=== PATIENT | male | born 1990 | race Caucasian/White ===

== ENCOUNTER 2018-05-22 12:39 | Outpatient (REF) | payer OTHER, SELFPAY ==
[2018-05-22 12:58] LABS: HCT 45.5 % (40.0-50.0); HGB 15.6 g/dL (13.5-17.5); Mean Corp. HGB Concentration 34.3 g/dL (32.0-36.0); Mean Corpuscular Hemoglobin 31.1 pg (27.0-33.0); Mean Corpuscular Volume 90.6 fL (80-95); Mean Platelet Volume 10.4 fL (8.0-11.0); Platelet Count 238 x1000/uL (130-400); RBC 5.02 m/cumm (4.50-6.00); White Blood Cell Count 11.65 k/cumm (4.4-10.8)
[2018-05-22 13:00] LABS: BUN 14 mg/dL (7-18); CREATININE 1.19 mg/dL (0.70-1.30); Calcium 9.1 mg/dL (8.5-10.1); Chloride 101 mmol/L (98-107); Glucose 99 mg/dL (70-100); Sodium 139 mmol/L (136-145)
[2018-05-22 13:36] LABS: TSH (W/Ref FT4) 0.76 uIU/mL (0.358-3.74)
== END 2018-05-22 12:59 ==
LOC: LBN 12:39
PROVIDERS: Visit Provider Nurse Practitioner Family
DX: Z00.00 Encounter for general adult medical examination without abnormal findings (principal); Z13.29 Encounter for screening for other suspected endocrine disorder; Z13.228 Encounter for screening for other metabolic disorders; Z13.0 Encounter for screening for diseases of the blood and blood-forming organs and certain disorders involving the immune mechanism
CPT/HCPCS: 80048; 85027; 84443

== ENCOUNTER 2018-10-15 18:36 | Outpatient (REF) | payer OTHER, SELFPAY ==
[2018-10-15 18:52] LABS: Abs Immature Grans 0.03 k/cumm (0.0-0.09); Absolute Basophil Count 0.07 k/cumm (0.0-0.2); Absolute Eosinophil Count 0.22 k/cumm (0.0-0.7); Absolute Lymphocyte Count 2.16 k/cumm (1.2-3.4); Absolute Neutrophil Count 4.47 k/cumm (1.2-6.7); Basophils % 0.9; Eosinophils % 2.9; HCT 43.7 % (40.0-50.0); HGB 15.2 g/dL (13.5-17.5); Immature Grans % 0.4; Lymphocytes % 28.2; Mean Corp. HGB Concentration 34.8 g/dL (32.0-36.0); Mean Corpuscular Hemoglobin 30.7 pg (27.0-33.0); Mean Corpuscular Volume 88.3 fL (80-95); Mean Platelet Volume 9.6 fL (8.0-11.0); Monocytes % 9.2; Neutrophils % 58.4; Platelet Count 236 x1000/uL (130-400); RBC 4.95 m/cumm (4.50-6.00); RBC Distribution Width 12.2 % (11.8-14.1); White Blood Cell Count 7.65 k/cumm (4.4-10.8)
[2018-10-15 19:16] LABS: ALT 32 U/L (12-78); AST 16 U/L (15-37)
== END 2018-10-15 18:56 ==
LOC: NCHCN 18:36
PROVIDERS: Visit Provider Nurse Practitioner Psychiatric/Mental Health
DX: Z51.81 Encounter for therapeutic drug level monitoring (principal)
CPT/HCPCS: 84450; 84460; 85025

== ENCOUNTER 2020-01-22 08:43 | Outpatient (CLI) | payer OTHER, SELFPAY ==
--- NOTE | 2020-01-22 11:37 | DI.RAD_ITS ---
EXAM: XR FOOT LT COMPLETE CLINICAL HISTORY: LT FOOT PAIN, M79.672 TECHNIQUE: COMPARISON: No exams were available for comparison FINDINGS: Three views were obtained. Bony alignment appears within normal limits. No bony or soft tissue abno rmality seen. IMPRESSION: RADIATION DOSE DELIVERED: Total DLP
== END 2020-01-22 09:03 ==
PROVIDERS: Visit Provider Nurse Practitioner Family
DX: M79.672 Pain in left foot (principal)
CPT/HCPCS: 73630

== ENCOUNTER 2020-01-22 11:52 | Outpatient (REF) | payer OTHER, SELFPAY ==
[2020-01-22 18:36] LABS: Abs Immature Grans 0.04 10^3/uL (0.0-0.06); Absolute Basophil Count 0.07 10^3/uL (0.0-0.2); Absolute Eosinophil Count 0.26 10^3/uL (0.0-0.7); Absolute Lymphocyte Count 2.65 10^3/uL (1.2-3.4); Absolute Neutrophil Count 5.02 10^3/uL (1.2-6.7); Basophils % 0.8; Eosinophils % 2.9; HCT 45.7 % (40.0-50.0); HGB 15.7 g/dL (13.5-17.5); Immature Grans % 0.5; MCH 30.6 pg (27.0-33.0); MCHC 34.4 % (32.0-36.0); MCV 89.1 fL (80-95); MPV 9.7 fL (8.0-11.0); Neutrophils % 56.8; Nucleated RBC 0 %; Platelet Count 260 10^3/uL (130-400); RBC 5.13 10^6/uL (4.36-5.78); RDW 11.9 % (11.8-14.1); RDW-SD 38.9 fL; WBC 8.84 10^3/uL (4.4-10.8)
[2020-01-22 18:52] LABS: ALT 39 U/L (16-63); AST 18 U/L (15-37); Albumin 4.2 g/dL (3.4-5.0); Alkaline Phosphatase 79 U/L (46-116); Anion Gap 5.1 mmol/L (3-11); BUN 13 mg/dL (7-18); Bilirubin, Total 0.3 mg/dL (0.2-1.0); CO2 29.9 mmol/L (21.0-32.0); CREATININE 0.91 mg/dL (0.70-1.30); Calcium 9.2 mg/dL (8.5-10.1); Calculated LDL 134 mg/dL (<100); Chloride 105 mmol/L (98-107); Cholesterol 211 mg/dL (<200); Glucose 93 mg/dL (74-106); HDL Cholesterol 38 mg/dL (40-60); Potassium 4.4 mmol/L (3.5-5.1); Sodium 140 mmol/L (136-145); Total Protein 6.9 g/dL (6.4-8.2); Triglyceride 195 mg/dL (<150); Uric Acid 4.3 mg/dL (3.5-7.2)
== END 2020-01-22 12:12 ==
LOC: NCHCN 11:52
PROVIDERS: Visit Provider Nurse Practitioner Family
DX: M79.671 Pain in right foot (principal)
CPT/HCPCS: 80053; 80061; 84550; 85025

== ENCOUNTER 2020-09-02 20:26 | Outpatient (CLI) | payer OTHER, SELFPAY ==
--- NOTE | 2020-09-02 11:15 | DI.RAD_ITS ---
EXAM: XR KNEE RT 4V AP,LAT,ALEX,PAT CLINICAL HISTORY: hyperextension injury followed by fall forward. TECHNIQUE: 2D digital imaging was performed. COMPARISON: No exams were available for comparison FINDINGS: BONES: No acute fracture is present. No bony destructive lesion is seen. JOINTS: Joint spaces are well maintained.. No joint effusion is seen. SOFT TISSUE: Normal. IMPRESSION: Unremarkable radiographs of the right knee. DATA REPOSITORY: RADIATION DOSE DELIVERED:
== END 2020-09-02 20:46 ==
PROVIDERS: PCP Nurse Practitioner Family; Visit Provider Nurse Practitioner Family
DX: M25.561 Pain in right knee (principal)
CPT/HCPCS: 73564

== ENCOUNTER 2021-03-03 18:58 | Outpatient (REF) | payer OTHER, SELFPAY ==
[2021-03-07 16:09] LABS: Chlamydia Result Negative (Negative); GC Result Negative (Negative)
== END 2021-03-03 18:59 | disposition home or self-care (01) ==
LOC: LBN 18:58
PROVIDERS: PCP Nurse Practitioner Family; Visit Provider Family Medicine
DX: Z11.3 Encounter for screening for infections with a predominantly sexual mode of transmission (principal)
CPT/HCPCS: 87491; 87591

== ENCOUNTER 2021-03-05 06:28 | Emergency (ER) | payer OTHER, SELFPAY ==
--- NOTE | 2021-03-05 06:34 | ED.GENADUL_ITS ---
Discharge Plan Disposition Patient Disposition: HOME Condition: Stable Discharge Details Clinical Impression: Low back pain radiating to both legs Primary Care Provider: Antohny Pond ED Provider: Jorge Luis Vazquez Home Meds and New Rx's Prescriptions: New orphenadrine citrate 100 mg tablet extended release 100 mg PO BID Qty: 10 RF: 0 prednisone 20 mg tablet 40 mg PO DAILY Qty: 8 RF: 0 Continued levofloxacin 500 mg tablet 500 mg PO DAILY RF: 0 Discharge Instructions Instructions: Lumbar Radiculopathy (ED) Additional Instructions: Please alternate acetaminophen with ibuprofen every 4 hours. May continue to use lidocaine patch. Muscle relaxant twice a day as directed. Steroid once daily to decrease swelling and inflammation. Follow-up with primary care this coming week if not improving. Return to the ED if you develop any bladder or bowel dysfunction, sensory change, weakness, significantly worsening pain. Medical Decision Making 30-year-old male presenting with low back pain and spasm with no specific injury. Having episodes of shooting pain down his legs consistent with sciatica. Is neurologically intact with no bladder or bowel dysfunction, numbness, weakness and symmetric reflex. Will dose with IM ketorolac and orphenadrine and reevaluate. Patient still uncomfortable but improving in regards to left-sided low back pain. Still with right sided back pain/spasm. Given the sciatic type symptoms, will go ahead and burst with steroids. Home with prescription for prednisone and orphenadrine. Acetaminophen and ibuprofen for pain. May continue to use lidocaine patch. Discussed reasons to return including bladder or bowel dysfunction, sensory changes, weakness, worsening pain. HPI General Mode of arrival: ambulatory . Date/Time Provider Initiated Documentation: 03/05/21 06:33 . Limitations to Documentation: no limitations . Information obtained by: patient, RN notes reviewed and old records reviewed . HPI Narrative: Patient presents to the ED with lower lumbar back pain that has been present for 4 to 5 days but has been getting progressively worse. Prior lidocaine patch on last night. Has worse pain this morning, difficulty with movement, difficulty with ambulating. Periodically gets shooting pains down both legs. Pain is severe enough feel like he is going to fall because his is going to get. Denies any bladder or bowel dysfunction. Denies any numbness or tingling in the legs. Denies any upper back pain. Denies chest pain or shortness of breath. Denies abdominal pain, nausea or vomiting. Denies any specific injury that he is aware of. Related Data Home Medications Medication Instructions Recorded Confirmed levofloxacin 500 mg PO DAILY 03/05/21 03/05/21 orphenadrine citrate 100 mg PO BID #10 tab 03/05/21 prednisone 40 mg PO DAILY #8 tab 03/05/21 Previous Rx's Medication Instructions Recorded orphenadrine citrate 100 mg PO BID #10 tab 03/05/21 prednisone 40 mg PO DAILY #8 tab 03/05/21 Allergies Allergy/AdvReac Type Severity Reaction Status Date / Time No Known Allergies Allergy Verified 03/05/21 06:43 Review of Systems Narrative: As documented in HPI otherwise negative as below. Const: no fever, chills, weakness Resp: no cough, SOB, pleuritic pain CV: no CP, diaphoresis, edema, syncope GI: no abdominal pain, nausea, vomiting, diarrhea Neuro: no headache, numbness, focal weakness, confusion PFSH Medical History Family history of ischemic heart disease Hyperlipidemia Tobacco abuse Social History Smoking/Tobacco Use Status: Current every day Tobacco Type: cigarettes Smoking risk assessment performed?: Yes Drug use: Never Substance use type: does not use Do you feel safe at home: Yes Do you feel safe in your relationship?: Yes Exam Narrative Exam Narrative: Const: WDWN male sitting on stretcher appears quite uncomfortable. HEENT: NC/AT. Normal facial exam. Eyes: Normal conjunctiva and sclera. Neck: Supple. Trachea midline. Lungs: Normal respiratory effort. Lungs are clear. Cor: RRR without murmur/gallop. Good radial pulses. Back: Tender across the lower lumbar region with decreased ROM and significant pain/spasm. Neuro: A+O x 3. Normal speech, mentation. Cranial nerves II - XII grossly intact. No gross motor or sensory deficit. Specifically, 5 out of 5 strength in his lower extremities. Sensory intact. Patella and Achilles reflex brisk Ext: No C/C/E. Skin: Warm and dry without rash.
[2021-03-05 06:35] VITALS: BP 133/103; PULSE 101; RESP 20; TEMP 36.3; O2SAT 99
[2021-03-05] MEDS: Ketorolac 30 MG/ML VIAL IM (06:59)
[2021-03-05] MEDS: Orphenadrine 60 MG/2 ML VIAL IM (07:01)
[2021-03-05] MEDS: predniSONE 20 MG TAB 40 MG PO (07:26)
[2021-03-05 07:43] VITALS: BP 121/91; PULSE 74; RESP 18; TEMP 36; O2SAT 99
== END 2021-03-05 07:58 | disposition home or self-care (01) ==
LOC: ER 07:48
PROVIDERS: Emergency Provider Emergency Medicine; PCP Nurse Practitioner Family
DX: M54.50 Low back pain, unspecified (principal); M62.830 Muscle spasm of back
CPT/HCPCS: 96372; 99284; J2360; 99283; J1885; J7512

== ENCOUNTER 2021-10-26 16:41 | Outpatient (REF) | payer OTHER, SELFPAY ==
[2021-10-26 16:02] LABS: HCT 46.2 % (40.0-50.0); HGB 15.8 g/dL (13.5-17.5); MCH 30.8 pg (27.0-33.0); MCHC 34.2 % (32.0-36.0); MCV 90 fL (80-95); MPV 9.7 fL (8.0-11.0); Platelet Count 266 10^3/uL (130-400); RBC 5.13 10^6/uL (4.36-5.78); RDW 11.8 % (11.8-14.1); RDW-SD 38.6 fL; WBC 10.12 10^3/uL (4.4-10.8)
[2021-10-26 16:20] LABS: ALT 37 U/L (16-63); AST 13 U/L (15-37); Alkaline Phosphatase 83 U/L (46-116); Anion Gap 9.5 mmol/L (3-11); BUN 17 mg/dL (7-18); Bilirubin, Total 0.2 mg/dL (0.2-1.0); CO2 26.5 mmol/L (21.0-32.0); CREATININE 0.8 mg/dL (0.70-1.30); Chloride 104 mmol/L (98-107); Glucose 103 mg/dL (74-106); Potassium 4.3 mmol/L (3.5-5.1); Sodium 140 mmol/L (136-145)
== END 2021-10-26 16:42 | disposition home or self-care (01) ==
LOC: NCHCN 16:41
PROVIDERS: PCP Nurse Practitioner Family; Visit Provider Nurse Practitioner Family
DX: Z00.00 Encounter for general adult medical examination without abnormal findings (principal); F34.81 Disruptive mood dysregulation disorder; F41.8 Other specified anxiety disorders; Z72.0 Tobacco use
CPT/HCPCS: 80053; 85027; 84443

== ENCOUNTER 2023-04-01 14:35 | Observation (INO) | payer OTHER, SELFPAY ==
[2023-04-01 14:39] VITALS: BP 144/102; PULSE 162; RESP 18; TEMP 36.5; O2SAT 100
--- NOTE | 2023-04-01 14:45 | DI.CT_ITS ---
Exam(s) CT ABDOMEN PELVIS W EXAM: CT ABDOMEN PELVIS W CLINICAL HISTORY: low pelvic/buttock pain, cyst TECHNIQUE: Imaging Protocol: Axial computed tomography images with coronal and sagittal reformatted images were created and reviewed CONTRAST MATERIAL: Intravenous: Omnipaque 350 Contrast volume:100 mL Oral: No COMPARISON: No exams were available for comparison FINDINGS: ABDOMEN: Lung Bases: Normal where visualized. Liver: Normal density. There are few tiny hypodensities in the liver which are too small for further characterization. Portal, Superior Mesenteric, and Splenic Veins: Unremarkable. Gallbladder and Biliary Tract: No radiodense calculus or dilation. Pancreas: Normal density, no abnormal calcifications or inflammatory process. Spleen: Normal. Adrenals: No masses seen. Kidneys: Normal size, contour and axis. There is a nonobstructing stone in the left kidney. No adalberto s seen. Abdominal Aorta: Abdominal portion non-dilated. Bowel: No obstruction or bowel wall thickening. Appendix is unremarkable. There is a moderate amount of stool in the colon. This may represent constipation. Peritoneal Cavity: No ascites, collection or mesenteric inflammatory response. No free air. Lymph Nodes: Within normal limits. Bones: Within normal limits for the patient's age. Soft Tissues: There is an air-fluid collection in the subcutaneous tissues in the perianal region nalini suring 3.1 transverse by 4.4 AP by 4.6 craniocaudad cm. This is most consistent with an abscess. PELVIS: Bladder: Symmetric distention, no gross wall thickening. Reproductive Organs: Unremarkable as visualized. Lymph Nodes: Within normal limits. Bones: Within normal limits for the patient's age. IMPRESSION: 1. 3.1 x 4.4 x 4.6 cm perianal abscess. 2. Tiny hypodensities in the liver. In low risk patient, these are most likely benign and no further follow-up is recommended. In high risk patient, follow-up MRI in 3-6 months is recommended (or steven ier if warranted by the patient's specific clinical circumstances). Reference: (Luan et al, 2017). RADIATION DOSE DELIVERED: Total DLP DATA REPOSITORY: All CT scans at this facility are submitted to the National Radiology Data Registry (NRDR) Dose Index Registry (DIR) with the [employer] (ACR). RADIATION OPTIMIZATION: All CT scans at this facility use at least one of these dose optimization te chniques: automated exposure control; mA and/or kV adjustment per patient size (includes targeted exa ms where dose is matched to clinical indication); or iterative reconstruction.
[2023-04-01] MEDS: Ketorolac 15 MG/ML VIAL IVP ×2 (15:03→22:45)
[2023-04-01] MEDS: fentaNYL 100 MCG/2 ML VIAL 50 MCG IVP (15:04)
[2023-04-01] MEDS: ACETAMINOPHEN 1,000 MG/100 ML BTL 400 MG IVPB (15:04)
[2023-04-01 15:10] LABS: Abs Immature Grans 0.07 10^3/uL (0.0-0.06); Basophils % 0.7; Eosinophils % 1.2; HCT 44.9 % (40.0-50.0); HGB 15.6 g/dL (13.5-17.5); Immature Grans % 0.5; Lymphocytes % 14.9; MCH 30.5 pg (27.0-33.0); MCHC 34.7 % (32.0-36.0); MCV 88 fL (80-95); MPV 8.7 fL (8.0-11.0); Monocytes % 7.1; Neutrophils % 75.6; Platelet Count 320 10^3/uL (130-400); RBC 5.11 10^6/uL (4.36-5.78); RDW 11.4 % (11.8-14.1); RDW-SD 36.9 fL; WBC 15.26 10^3/uL (4.4-10.8)
--- NOTE | 2023-04-01 15:10 | ED.GENADUL_ITS ---
Discharge Plan Disposition Patient Disposition: Admit to [facility] Condition: Serious Discharge Details Chief Complaint: Cellulitis Clinical Impression: Abscess, Sepsis Primary Care Provider: DAVID WILEY ED Provider: Gena Bolaños Home Meds and New Rx's Prescriptions: No Action metronidazole 500 mg tablet 500 mg PO BID Patient Comments: TAKE 1 TABLET BY MOUTH THREE TIMES DAILY cefuroxime axetil 500 mg tablet 500 mg PO BID Patient Comments: TAKE 1 TABLET BY MOUTH TWICE DAILY albuterol sulfate 90 mcg/actuation HFA aerosol inhaler INHALATION Patient Comments: INHALE 2 PUFFS BY MOUTH EVERY 4 HOURS NEEDED Medical Decision Making 33yo previously healthy male presenting with perirectal pain. Symptoms started on ; seen at urgent at that time where he had an ultrasound and states he was told he had an abscess that was too deep to drain, started on course of PO antibiotics. Tachycardiac on arrival to 160's, mildly hypertensive, appears to be in significant pain. Not overtly septic however with tachycardia and known abscess is concerning. Afebrile. On exam he has tenderness and induration on left buttock near anus (some on right side as well) tracking superiorly. Does have pilonidal sinus present, minimally tender at that site. Tylenol/toradol/fentanyl for pain. Labs reviewed as below, CBC with lekuoctyosis to 15, CMP with mildly elevated gap (11.9) without acidosis, ESR and CRP slightly elevated. Lactic elevated at 2.3 (will trend). Meets sepsis criteria; will give 2L of IVB, start broad spectrum abx with zosyn/zyvox while remainder of workup pending though abscess most likely source. Low suspicion for necrotizing soft tissue infection and LRINEC score 2, low risk. UA negative for infection, CXR independently reviewed, no focal pneumonia on my view, agree with radiology read below. CT to evaluate for location/extent of abscess, independently reviewed and does show abscess, agree with radiology read below. Attempted bedside drainage under ultrasound guidance without success. Repeat vital signs improved though still somewhat tachycardiac with HR down to 90's. I do not believe I have source control. Discussed with Dr. Arriola from surgery, accepted to her service, will continue on zosyn and be NPO at midnight. Awaiting transfer to the floor. Imaging Data Radiologic Study: Imaging: X-Ray Radiologist's impression: IMPRESSION: No acute pulmonary findings. Radiologic Study #2: Imaging: CT Scan Radiologist's impression: IMPRESSION: 1. 3.1 x 4.4 x 4.6 cm perianal abscess. 2. Tiny hypodensities in the liver. In low risk patient, these are most likely benign and no further follow-up is recommended. In high risk patient, follow-up MRI in 3-6 months is recommended (or earlier if warranted by the patient's specific clinical circumstances). Reference: (Luan et al, 2017). HPI General Mode of arrival: ambulatory . Date/Time Provider Initiated Documentation: 04/01/23 14:40 . Limitations to Documentation: no limitations . Information obtained by: patient . HPI Narrative: 33yo previously healthy male presenting with perirectal pain. Symptoms started on ; seen at urgent at that time where he had an ultrasound and states he was told he had an abscess that was too deep to drain, started on course of PO antibiotics. Since then pain has increased dramatically and he is now unable to sit. Has never experienced anything like this before. He is otherwise in his usual state of health with no fevers, chills, rash, nausea, vomiting, bloody stool, or other concerns. Related Data Home Medications Medication Instructions Recorded Confirmed albuterol sulfate 90 mcg/actuation inhalation 04/01/23 aerosol inhaler cefuroxime axetil 500 mg tablet 500 mg PO BID 04/01/23 04/01/23 metronidazole 500 mg tablet 500 mg PO BID 04/01/23 04/01/23 Allergies Allergy/AdvReac Type Severity Reaction Status Date / Time No Known Allergies Allergy Verified 04/01/23 14:42 General Stated Complaint: Cellulitis JOJO: 3 Review of Systems Narrative: see HPI PFSH All Active Problems (Updated 04/01/23 @ 18:09 by Gena Bolaños MD) Sepsis (Acute) Abscess (Acute) Acute pain of right knee (Acute) Tobacco abuse (Acute) Hyperlipidemia (Acute) Family history of ischemic heart disease (Acute) Medical History (Updated 04/01/23 @ 18:09 by Gena Bolaños MD) Low back pain radiating to both legs Resolved with PT and work restrictions. MMI on 03/06/2022. Social History Smoking/Tobacco Use Status: Current every day Tobacco Type: cigarettes Smoking risk assessment performed?: Yes Drug use: Never Substance use type: does not use Do you feel safe at home: Yes Do you feel safe in your relationship?: Yes Exam Narrative Exam Narrative: General: Alert, distressed Head: Normocephalic, atraumatic Neck: Trachea midline, Neck supple. Cardiac: Tachycardiac, regular, no murmurs appreciated Resp: No respiratory distress. CTAB. Abd: Soft, non-distended, nontender : No suprapubic tenderness. Perianal: Pilonidial sinus. Palpable induration without fluctuance to left of anal verge tracking superiorly, tender. Minimal tenderness near pilonidal sinus. No overlying erythema. No crepitus. Extremities: No deformities. No peripheral edema. Neurologic: GCS 15. Moves all extremities freely against gravity Course Vital Signs Vital signs: Vital Signs Temperature 36.5 C 04/01/23 14:39 Pulse 162 H 04/01/23 14:39 Respiratory Rate 18 04/01/23 14:39 Blood Pressure 144/102 H 04/01/23 14:39 Pulse Oximetry 100 04/01/23 14:39 Temperature 36.5 C 04/01/23 14:39 Temperature Source Skin 04/01/23 14:39 Pulse 162 H 04/01/23 14:39 Respiratory Rate 18 04/01/23 14:39 Blood Pressure 144/102 H 04/01/23 14:39 Pulse Oximetry 100 04/01/23 14:39 Oxygen Delivery Method Room Air 04/01/23 14:39 Oxygen Flow Rate 0 04/01/23 14:39 Pain Level 8 04/01/23 14:39 Lab/Test Results Lab/Test Results: 04/01/23 14:51 Blood Blood Culture - Pending 04/01/23 14:51 Blood Blood Culture - Pending Procedures Abscess I/D Site: Yesenia-rectal Side (if applicable): Left Sedation/analgesia: Fentanyl Local Anesthetic: Lidocaine 1% Amount of anesthesia used (mL): 5 Technique: Incised with #11 Blade Amount of fluid expressed (mL): 5 Irrigation: No Packing used?: Plain Critical Care Time Critical Care Time Critical Care Time: Yes Total Critical Care Time: 31 Attestation: Due to a high probability of clinically significant, life threatening deterioration, the patient required my highest level of preparedness to intervene emergently and I personally spent this critical care time directly and personally managing the patient. This critical care time included obtaining a history; examining the patient; pulse oximetry; ordering and review of studies; arranging urgent treatment with development of a management plan; evaluation of patient's response to treatment; frequent reassessment; and, discussions with other providers. This critical care time was performed to assess and manage the high probability of imminent, life-threatening deterioration that could result in multi-organ fa ilure. It was exclusive of separately billable procedures.
[2023-04-01 15:11] LABS: Absolute Basophil Count 0.11 10^3/uL (0.0-0.2); Absolute Eosinophil Count 0.18 10^3/uL (0.0-0.7); Absolute Lymphocyte Count 2.27 10^3/uL (1.2-3.4); Absolute Monocyte Count 1.08 10^3/uL (0.1-0.8); Absolute Neutrophil Count 11.54 10^3/uL (1.2-6.7)
[2023-04-01 15:13] LABS: Lactate 2.3 mmol/L (0.6-1.4)
[2023-04-01] MEDS: Omnipaque 350 MG/ML 100 ML BTL IJ (15:13)
[2023-04-01] MEDS: Normal Saline - Diluent 50 ML VIAL IJ (15:14)
[2023-04-01] MEDS: Normal Saline Flush 10 ML SYR IVP (15:15)
--- NOTE | 2023-04-01 15:15 | DI.RAD_ITS ---
Exam(s) XR CHEST 2V PA LATERAL EXAM: XR CHEST 2V PA LATERAL CLINICAL HISTORY: sepsis TECHNIQUE: 2D digital imaging was performed of the chest. Two images were obtained. PA and lateral views were obtained. COMPARISON: CR ABD FLAT UPRIGHT PA CHEST from 03/17/2010 FINDINGS: MEDIASTINUM: Normal. HEART: Normal. PULMONARY VASCULATURE: Normal. LUNGS: Clear. PLEURAL SPACE: No pleural effusion or pneumothorax. BONE:Within normal limits for the patient's age. OTHER FINDINGS:Normal. IMPRESSION: No acute pulmonary findings. DATA REPOSITORY: RADIATION DOSE DELIVERED:
[2023-04-01 15:25] LABS: ALT 31 U/L (16-63); AST 24 U/L (15-37); Albumin 3.4 g/dL (3.4-5.0); Alkaline Phosphatase 110 U/L (46-116); Anion Gap 11.9 mmol/L (3-11); BUN 11 mg/dL (7-18); Bilirubin, Total 0.5 mg/dL (0.2-1.0); CO2 25.1 mmol/L (21.0-32.0); Calcium 9.8 mg/dL (8.5-10.1); Chloride 99 mmol/L (98-107); Estimated GFR 100.66 (mL/min/1.73m2); Glucose 181 mg/dL (74-106); Potassium 3.9 mmol/L (3.5-5.1); Sodium 136 mmol/L (136-145); Total Protein 7.7 g/dL (6.4-8.2)
[2023-04-01 15:53] LABS: ESR 22 mm/hr (0-15)
--- NOTE | 2023-04-01 16:04 | DI.VRAD_ITS ---
PROCEDURE INFORMATION: Exam: XR Chest Exam date and time: 04/01/2023 3:28 PM Age: 33 years old Clinical indication: Other: Sepsis TECHNIQUE: Imaging protocol: Radiologic exam of the chest. Views: 2 views. COMPARISON: CT ABDOMEN PELVIS W 04/01/2023 3:15 PM FINDINGS: Lungs: Unremarkable. No consolidation. Pleural spaces: Unremarkable. No pleural effusion. No pneumothorax. Heart/Mediastinum: Unremarkable. No cardiomegaly. Bones/joints: Surgical hardware right glenoid. IMPRESSION: No acute findings. Dictated and Authenticated by: Elvin Mckeon MD. Ordering:ASA Avery MD
[2023-04-01 16:05] LABS: C-Reactive Protein 3.02 mg/dL (0.0-0.3)
--- NOTE | 2023-04-01 16:09 | DI.VRAD_ITS ---
PROCEDURE INFORMATION: Exam: CT Abdomen And Pelvis With Contrast Exam date and time: 04/01/2023 3:15 PM Age: 33 years old Clinical indication: Other: Low pelvic/buttock pain TECHNIQUE: Imaging protocol: Computed tomography of the abdomen and pelvis with contrast. Radiation optimization: All CT scans at this facility use at least one of these dose optimization techniques: automated exposure control; mA and/or kV adjustment per patient size (includes targeted exams where dose is matched to clinical indication); or iterative reconstruction. Contrast material: OMNI 350; Contrast volume: 100 ml; Contrast route: INTRAVENOUS (IV); COMPARISON: No relevant prior studies available. FINDINGS: Liver: 3 mm round hypodensity in the dome of the liver. Additional scattered sub 5 mm hypodensities in the liver. Gallbladder and bile ducts: Normal. No calcified stones. No ductal dilation. Pancreas: Normal. No ductal dilation. Spleen: Normal. No splenomegaly. Adrenal glands: Normal. No mass. Kidneys and ureters: Normal. No hydronephrosis. Stomach and bowel: Unremarkable. No obstruction. No mucosal thickening. Appendix: No evidence of appendicitis. Intraperitoneal space: Unremarkable. No free air. No significant fluid collection. Vasculature: Unremarkable. No abdominal aortic aneurysm. Lymph nodes: Unremarkable. No enlarged lymph nodes. Urinary bladder: Unremarkable as visualized. Reproductive: Unremarkable as visualized. Bones/joints: Unremarkable. No acute fracture. Soft tissues: Unremarkable. Other findings: Left of midline perianal fluid collection containing air measuring 2.9 x 2.5 cm. Edema present in the perianal fat. IMPRESSION: 1. Perianal abscess. 2. Small round hypodensities within the liver.In a low-risk patient, this is most likely to be benign and no further follow-up is recommended. In a high-risk patient, follow-up MRI in 3-6 months is recommended (or earlier if warranted by the patient's specific clinical circumstances). (Reference: Luan) REFERENCES: Luan ALARCON, et al. Management of Incidental Liver Lesions on CT: A White Paper of the ACR Incidental Findings Committee. J Am Talha Radiol. 2017;14(11):7200-6521. Dictated and Authenticated by: Elvin Mckeon MD. Ordering:ASA Avery MD
[2023-04-01 16:18] LABS: Bilirubin Negative (Negative); Blood Negative (Negative); Clarity Clear (Clear); Glucose Negative (Negative); Ketones Negative (Negative); Leukocyte Esterase Negative (Negative); Nitrite Negative (Negative); Urobilinogen 0.2 mg/dL (Up to 0.2)
[2023-04-01] MEDS: Normal Saline 500 ML 1000 ML IV ×2 (16:21→17:00)
[2023-04-01 16:22] VITALS: BP 121/84; PULSE 93; RESP 18; O2SAT 98
[2023-04-01] MEDS: PIPERACILLIN/TAZO 4.5 GM in Normal Saline 100 ML IVPB (16:22)
[2023-04-01 16:26] LABS: Bacteria Rare HPF (Negative); C & S Indicated? No; Casts Negative LPF (Negative); Crystals Few Amorphous HPF (Negative); Epithelial Cells Rare HPF (Negative); Mucus Trace (Negative); RBC Negative HPF (0-2); WBC Negative HPF (0-5)
[2023-04-01] MEDS: fentaNYL 100 MCG/2 ML VIAL 75 MCG IVP (16:39)
[2023-04-01] MEDS: LINEZOLID 600 MG/300 ML BAG 300 MG IVPB (17:35)
[2023-04-01 17:55] LABS: Source Nasal/Nares
[2023-04-01 18:17] LABS: Lactate 0.9 mmol/L (0.6-1.4)
[2023-04-01 18:26] LABS: COVID-19 PCR Negative (Negative)
[2023-04-01 18:45] VITALS: BP 131/81; PULSE 72; RESP 18; TEMP 37.2; O2SAT 93
[2023-04-01] MEDS: Lactated Ringers 1,000 ML 125 ML IV (18:53)
[2023-04-01 19:00] VITALS: BP 131/81; PULSE 72; RESP 18; TEMP 37.2; O2SAT 93
[2023-04-01] MEDS: Docusate Sodium 100 MG CAP PO (19:49)
[2023-04-01 20:45] LABS: Lactate 2.2 mmol/L (0.6-1.4)
[2023-04-01 20:52] LABS: Anion Gap 9.1 mmol/L (3-11); BUN 11 mg/dL (7-18); CO2 25.9 mmol/L (21.0-32.0); CREATININE 1.1 mg/dL (0.70-1.30); Chloride 104 mmol/L (98-107); Estimated GFR 89.78 (mL/min/1.73m2); Glucose 131 mg/dL (74-106); Potassium 3.6 mmol/L (3.5-5.1); Sodium 139 mmol/L (136-145)
[2023-04-01] MEDS: PIPERACILLIN/TAZO 3.375 GM in Normal Saline 50 ML IVPB (21:23)
[2023-04-02] VITALS (16 sets, daily range): BP systolic 115–136; BP diastolic 68–86; PULSE 77–105; RESP 15–18; TEMP 36.8–37.6; O2SAT 92–98; BMI 30.6
--- NOTE | 2023-04-02 | DI.CT_ITS ---
Exam(s) CT PELVIC W EXAM: CT PELVIC W CLINICAL HISTORY: perirectal abscess, s/p I D in ER, punch box tender TECHNIQUE: Imaging Protocol: Axial computed tomography images with coronal and sagittal reformatted images were created and reviewed CONTRAST MATERIAL: Intravenous: Omnipaque 350 Contrast volume:100 mL Oral: No COMPARISON: CT CT ABDOMEN PELVIS W from 04/01/2023 FINDINGS: PELVIS: Abdominal Aorta: Abdominal portion non-dilated. Mild atherosclerosis. Bowel: No obstruction or bowel wall thickening. Appendix is unremarkable. Peritoneal Cavity: No ascites, collection or mesenteric inflammatory response. Soft Tissues: There is again seen a perirectal abscess. It now measures 4.0 AP by 2.7 transverse by 4.1 craniocaudad cm. This compares to 4.4 AP by 3.1 transverse by 4.6 craniocaudad on the prior exam ination. There is a small amount of air seen within the abscess. Bladder: The urinary bladder is incompletely distended but grossly unremarkable. Reproductive Organs: Unremarkable as visualized. Lymph Nodes: Within normal limits. Bones: Within normal limits. No bony destructive changes are seen. IMPRESSION: Slight decrease in size of the perirectal abscess which now measures 4.0 x 2.7 x 4.1 cm. This compar es to 4.4 x 3.1 x 4.6 cm on the prior examination. RADIATION DOSE DELIVERED: Total DLP DATA REPOSITORY: All CT scans at this facility are submitted to the National Radiology Data Registry (NRDR) Dose Index Registry (DIR) with the [employer] (ACR). RADIATION OPTIMIZATION: All CT scans at this facility use at least one of these dose optimization te chniques: automated exposure control; mA and/or kV adjustment per patient size (includes targeted exa ms where dose is matched to clinical indication); or iterative reconstruction.
[2023-04-02] MEDS: Lactated Ringers 1,000 ML 125 ML IV ×2 (00:25→12:30)
[2023-04-02] MEDS: MORPHine 2 MG/ML SYR IVP (00:37)
[2023-04-02] MEDS: Normal Saline Flush 10 ML SYR IVP (00:38)
[2023-04-02] MEDS: PIPERACILLIN/TAZO 3.375 GM in Normal Saline 50 ML IVPB ×4 (04:54→21:59)
[2023-04-02 06:37] LABS: Abs Immature Grans 0.07 10^3/uL (0.0-0.06); Absolute Basophil Count 0.11 10^3/uL (0.0-0.2); Absolute Eosinophil Count 0.31 10^3/uL (0.0-0.7); Absolute Lymphocyte Count 1.76 10^3/uL (1.2-3.4); Absolute Monocyte Count 1.45 10^3/uL (0.1-0.8); Absolute Neutrophil Count 11.58 10^3/uL (1.2-6.7); Basophils % 0.7; HCT 40.4 % (40.0-50.0); HGB 13.7 g/dL (13.5-17.5); Immature Grans % 0.5; Lymphocytes % 11.5; MCH 29.8 pg (27.0-33.0); MCHC 33.9 % (32.0-36.0); MCV 88 fL (80-95); MPV 8.7 fL (8.0-11.0); Monocytes % 9.5; Neutrophils % 75.8; Platelet Count 293 10^3/uL (130-400); RBC 4.59 10^6/uL (4.36-5.78); RDW 11.4 % (11.8-14.1); RDW-SD 36.9 fL; WBC 15.28 10^3/uL (4.4-10.8)
--- NOTE | 2023-04-02 06:56 | W.PM.HP.N ---
Date of service: 04/02/23 Time of Service: 06:56 Assessment and Plan Assessment and plan (1) Perirectal abscess: Status: Acute Assessment and plan: Vimal is a pleasant 3-year-old gentleman who has developed a perirectal abscess. They did an incision and drainage in the ER. The patient is still very tender and his white count has not come down despite antibiotics. I suspect that they did not go deep enough. I cannot feel an abscess and the patient is quite tender so I do not think doing an ultrasound would be beneficial. We will do a stat pelvic CT to see whether that abscess was drained or not. If there is still an abscess noted then he will need to go back to the operating room to get it drained formally. This was discussed with the patient and he agrees with the plan. I will keep the patient n.p.o. We will continue IV antibiotics. He has IV fluids running. Pain control with morphine, IV Tylenol and Toradol. We will hold any chemical DVT prophylaxis in case he has to go to surgery. SCDs will be ordered GI prophylaxis with an antacid. History of Present Illness Consults Consult date: 04/01/23 Requesting physician: Gena Bolaños Narrative: Mr. Hoskins is a pleasant 33-year-old gentleman who came in through the emergency department last night. He started having some perirectal pain they did not think much about it but by the pain was excruciating. He went to urgent care where they did an ultrasound found an abscess and placed him on antibiotics. He started taking the antibiotics but by Sunday evening he just could not stand the pain so came to the emergency department. Work-up revealed an elevated white count. He is CRP was elevated. CT scan abdomen pelvis showed a perirectal abscess just left of midline. The emergency department physician did an incision and drainage but they did not feel that they got all of it. Patient was admitted for pain control, IV antibiotics and possible repeat I&D today. I reviewed his CT scan myself. There is a 2 x 3 cm abscess just left of midline. It did not seem to communicate with the rectum itself. The patient is otherwise a healthy 33-year-old. Tmax overnight was 99.1. He is not having any nausea or vomiting. Review of Systems Constitutional Constitutional: Reports fever(s), Denies headache(s) and Denies poor appetite Eyes Eyes: Denies change in vision and Denies diplopia ENT Ears, Nose, Mouth, and Throat: Denies dysphagia and Denies headache(s) Cardiovascular Cardiovascular: Denies chest pain, Denies chest pain at rest, Denies irregular heart rhythm, Denies palpitations and Denies dyspnea Respiratory Respiratory: Denies cough and Denies dyspnea Gastrointestinal Gastrointestinal: Reports system reviewed and no additional complaints, except as documented, Denies dysphagia, Denies dyspepsia and Denies heartburn Genitourinary Genitourinary: Denies oliguria and Denies difficulty urinating Musculoskeletal Musculoskeletal: Reports system reviewed and no additional complaints, except as documented Integumentary/Breasts Skin/Breast: Reports system reviewed and no additional complaints, except as documented Neurologic Neurologic: Reports system reviewed and no additional complaints, except as documented and Denies headache(s) Psychiatric Psychiatric: Reports system reviewed and no additional complaints, except as documented Endocrine Endocrine: Reports system reviewed and no additional complaints, except as documented and Denies palpitations Hematologic/Lymphatic Hematologic/Lymphatic: Denies easy bleeding, Denies easy bruising and Denies lymphadenopathy Allergic/Immunologic Allergic/Immunologic: Reports system reviewed and no additional complaints, except as documented PFSH All Active Problems (Updated 04/02/23 @ 07:03 by Alannah Arriola MD) Perirectal abscess (Acute) Sepsis (Acute) Abscess (Acute) Acute pain of right knee (Acute) Tobacco abuse (Acute) Hyperlipidemia (Acute) Family history of ischemic heart disease (Acute) Medical History Low back pain radiating to both legs Resolved with PT and work restrictions. MMI on 03/06/2022. Social History Smoking/Tobacco Use Status: Current every day Tobacco Type: cigarettes Smoking risk assessment performed?: Yes Drug use: Never Substance use type: does not use Housing: house Do you feel safe at home: Yes Do you feel safe in your relationship?: Yes Meds Allergies and Home Medications Allergies Allergy/AdvReac Type Severity Reaction Status Date / Time No Known Allergies Allergy Verified 04/01/23 14:42 Home Medications Medication Instructions Recorded Confirmed Type albuterol sulfate 90 mcg/actuation inhalation 04/01/23 History aerosol inhaler cefuroxime axetil 500 mg tablet 500 mg PO BID 04/01/23 04/01/23 History metronidazole 500 mg tablet 500 mg PO BID 04/01/23 04/01/23 History Exam Const General: cooperative and no acute distress Nutritional Appearance: average body habitus Orientation: alert and oriented x3 HENMT Head: normocephalic and atraumatic Resp Effort & Inspection: normal respiratory effort Auscultation: clear to auscultation bilaterally Cardio Rate: regular rate Rhythm: regular rhythm Heart Sounds: no gallops, no murmurs and no rubs GI Inspection: normal to inspection Palpation: soft and nontender Rectal Exam: other Other: Perirectal exam- Incision is noted. There is induration. It is TTP. NO fluctuance palpated Results Imaging CT scan - pelvis: report reviewed and image reviewed Labs 04/02/23 06:20 04/01/23 20:30 Labs: Laboratory Results - last 24 hr 04/01/23 04/01/23 04/01/23 15:00 16:08 17:46 WBC 15.26 H RBC 5.11 Hgb 15.6 Hct 44.9 MCV 88 MCH 30.5 MCHC 34.7 RDW 11.4 L Plt Count 320 MPV 8.7 Immature Gran % 0.5 Neutrophils % 75.6 Lymphocytes % 14.9 Monocytes % 7.1 Eosinophils % 1.2 Basophils % 0.7 Nucleated RBC % 0.0 Absolute Neutrophils 11.54 H Absolute Lymphocytes 2.27 Absolute Monocytes 1.08 H Absolute Eosinophils 0.18 Absolute Basophils 0.11 ESR 22 H VBG Lactate 2.3 H* Sodium 136 Potassium 3.9 Chloride 99 Carbon Dioxide 25.1 Anion Gap 11.9 H BUN 11 Creatinine 1.0 Est GFR (CKD-EPI 2020) 100.66 Glucose 181 H Calcium 9.8 Total Bilirubin 0.5 AST 24 ALT 31 Alkaline Phosphatase 110 C-Reactive Protein 3.02 H Total Protein 7.7 Albumin 3.4 Urine Color Yellow Urine Clarity Clear Urine pH 7.0 Ur Specific [place] 1.010 Urine Protein Trace H Urine Ketones Negative Urine Blood Negative Urine Nitrite Negative Urine Bilirubin Negative Urine Urobilinogen 0.2 Ur Leukocyte Esterase Negative Urine RBC Negative Urine WBC Negative Ur Epithelial Cells Rare Urine Crystals Few Amorphous Urine Bacteria Rare Urine Casts Negative Urine Mucus Trace Ur Culture Indicated? No Urine Glucose Negative COVID-19 Source Nasal/Nares SARS-CoV-2 (PCR) Negative 04/01/23 04/01/23 04/02/23 18:06 20:30 00:53 WBC RBC Hgb Hct MCV MCH MCHC RDW Plt Count MPV Immature Gran % Neutrophils % Lymphocytes % Monocytes % Eosinophils % Basophils % Nucleated RBC % Absolute Neutrophils Absolute Lymphocytes Absolute Monocytes Absolute Eosinophils Absolute Basophils ESR VBG Lactate 0.9 2.2 H* Sodium 139 Potassium 3.6 Chloride 104 Carbon Dioxide 25.9 Anion Gap 9.1 BUN 11 Creatinine 1.1 Est GFR (CKD-EPI 2020) 89.78 Glucose 131 H Calcium 9.0 Total Bilirubin AST ALT Alkaline Phosphatase C-Reactive Protein Total Protein Albumin Urine Color Urine Clarity Urine pH Ur Specific [place] Urine Protein Urine Ketones Urine Blood Urine Nitrite Urine Bilirubin Urine Urobilinogen Ur Leukocyte Esterase Urine RBC Urine WBC Ur Epithelial Cells Urine Crystals Urine Bacteria Urine Casts Urine Mucus Ur Culture Indicated? Urine Glucose COVID-19 Source Cancelled SARS-CoV-2 (PCR) Cancelled 04/02/23 06:20 WBC 15.28 H RBC 4.59 Hgb 13.7 Hct 40.4 MCV 88 MCH 29.8 MCHC 33.9 RDW 11.4 L Plt Count 293 MPV 8.7 Immature Gran % 0.5 Neutrophils % 75.8 Lymphocytes % 11.5 Monocytes % 9.5 Eosinophils % 2.0 Basophils % 0.7 Nucleated RBC % 0.0 Absolute Neutrophils 11.58 H Absolute Lymphocytes 1.76 Absolute Monocytes 1.45 H Absolute Eosinophils 0.31 Absolute Basophils 0.11 ESR VBG Lactate Sodium Potassium Chloride Carbon Dioxide Anion Gap BUN Creatinine Est GFR (CKD-EPI 2020) Glucose Calcium Total Bilirubin AST ALT Alkaline Phosphatase C-Reactive Protein Total Protein Albumin Urine Color Urine Clarity Urine pH Ur Specific [place] Urine Protein Urine Ketones Urine Blood Urine Nitrite Urine Bilirubin Urine Urobilinogen Ur Leukocyte Esterase Urine RBC Urine WBC Ur Epithelial Cells Urine Crystals Urine Bacteria Urine Casts Urine Mucus Ur Culture Indicated? Urine Glucose COVID-19 Source SARS-CoV-2 (PCR) Last Vital Signs Temp 99.1 F 04/02/23 04:05 Pulse 80 04/02/23 04:05 Resp 18 04/02/23 04:05 BP 123/80 04/02/23 04:05 Pulse Ox 97 04/02/23 04:05 Time Spent Time spent with Patient: 40-54 minutes Time was spent: preparing to see the patient(eg.review tests), obtaining and/or reviewing separately otained hiistory, ordering medications,tests, procedures, indepentently interpreting results and counseling the patient
[2023-04-02] MEDS: Ketorolac 15 MG/ML VIAL IVP ×2 (07:45→15:35)
[2023-04-02] MEDS: Normal Saline - Diluent 50 ML VIAL IJ (08:50)
[2023-04-02] MEDS: Omnipaque 350 MG/ML 500 ML BTL-Imaging package 100 ML IJ (08:51)
--- NOTE | 2023-04-02 09:30 | ANES.PREOP_ITS ---
General Info Date of Service Date Performed: 04/02/23 Height: 5 ft 6 in Weight: 86 kg Body Mass Index (BMI): 30.6 Surgical Procedure: Operation Date: 04/02/23 12:40 Proposed Procedure Side Surgeon p I&D Yesenia Rectal Abscess Talha Lr MD Meds Allergies and Home Medications Allergies Allergy/AdvReac Type Severity Reaction Status Date / Time No Known Allergies Allergy Verified 04/01/23 14:42 Home Medication Medication Instructions Recorded albuterol sulfate 90 mcg/actuation inhalation 04/01/23 aerosol inhaler cefuroxime axetil 500 mg tablet 500 mg PO BID 04/01/23 metronidazole 500 mg tablet 500 mg PO BID 04/01/23 Current Visit Medications: Current Medications Generic Name Dose Route Start Last Admin Trade Name Freq PRN Reason Stop Dose Admin Acetaminophen 650 mg 04/01/23 17:38 Ac[address] Q4H PRN PRN Albuterol Sulfate 2.5 mg 04/01/23 17:38 Albuterol 2.5 Mg/3 Ml Inh Soln Vial UPD Q4H PRN PRN Docusate Sodium 100 mg 04/01/23 20:00 04/02/23 07:46 Docusate Sodium 100 Mg Cap PO Not Given TID JOYCE Ringer's Solution 1,000 mls @ 125 mls/hr 04/01/23 17:45 04/02/23 00:25 IV 125 mls/hr INFUSION JOYCE Administration Piperacillin Sod/Tazobactam 50 mls @ 100 mls/hr 04/01/23 22:00 04/02/23 05:30 Sod 3.375 gm/ Sodium Chloride IVPB Infused Q6H JOYCE Infusion IV Miscellaneous Supplies 1 each 04/01/23 15:45 Iv Access IV DIRECTED JOYCE Iohexol 100 ml 04/02/23 09:00 04/02/23 08:51 Omnipaque 350 Mg/Ml 500 Ml Btl-Imaging Package IJ 04/02/23 12:00 100 ml DIRECTED JOYCE Administration Ketorolac Tromethamine 15 mg 04/01/23 17:43 04/02/23 07:45 Ketorolac 15 Mg/Ml Vial IVP 04/06/23 17:42 15 mg Q6H PRN PRN Administration Magnesium Hydroxide 30 ml 04/01/23 17:38 Milk Of Magnesia 30 Ml Cup PO DIRECTED PRN Morphine Sulfate 2 mg 04/01/23 17:38 04/02/23 00:37 Morphine 2 Mg/Ml Syr IVP 2 mg Q1H PRN PRN Administration Ondansetron HCl 4 mg 04/01/23 17:38 Ondansetron 4 Mg/2 Ml Vial IVP Q4H PRN PRN Pantoprazole Sodium 40 mg 04/02/23 08:30 Pantoprazole 40 Mg Vial IVP Q24H JOYCE Sodium Chloride 0 ml 04/01/23 15:15 04/02/23 00:38 Normal Saline Flush 10 Ml Syr IVP 20 ml PRN PRN Administration PFSH Active Problems Active Problems: Problem Status Onset Code Perirectal abscess K61.1 Sepsis A41.9 Abscess L02.91 Acute pain of right knee M25.561 Tobacco abuse Z72.0 Hyperlipidemia E78.5 Family history of ischemic heart disease Z82.49 Medical History Medical History Low back pain radiating to both legs Resolved with PT and work restrictions. MMI on 03/06/2022. Tobacco Smoking/Tobacco Use Status: Current every day Tobacco Type: cigarettes Substance Use Substance use: Never Substance use type: does not use Vital Signs and Lab Results Vital Signs Most Recent Vital Signs in EMR: Most Recent Vital Signs Temp Pulse Resp BP Pulse Ox 37.6 C H 79 18 116/78 97 04/02/23 07:50 04/02/23 07:50 04/02/23 07:50 04/02/23 07:50 04/02/23 07:50 Lab Results 04/02/23 06:20 04/01/23 20:30 Blood Type / Crossmatch: 2 No Data to Display Complete Blood Count: 2 White Blood Count 15.28 10^3/uL (4.4-10.8) H 04/02/23 06:20 Red Blood Count 4.59 10^6/uL (4.36-5.78) 04/02/23 06:20 Hemoglobin 13.7 g/dL (13.5-17.5) 04/02/23 06:20 Hematocrit 40.4 % (40.0-50.0) 04/02/23 06:20 Platelet Count 293 10^3/uL (130-400) 04/02/23 06:20 Venous Blood Lactate 2.2 mmol/L (0.6-1.4) H* 04/01/23 20:30 Complete Metabolic Panel: 2 Sodium 139 mmol/L (136-145) 04/01/23 20:30 Potassium 3.6 mmol/L (3.5-5.1) 04/01/23 20:30 Chloride 104 mmol/L (98-107) 04/01/23 20:30 Carbon Dioxide 25.9 mmol/L (21.0-32.0) 04/01/23 20:30 BUN 11 mg/dL (7-18) 04/01/23 20:30 Creatinine 1.1 mg/dL (0.70-1.30) 04/01/23 20:30 Est GFR (CKD-EPI 2020) 89.78 (mL/min/1.73m2) 04/01/23 20:30 Calcium 9.0 mg/dL (8.5-10.1) 04/01/23 20:30 Albumin 3.4 g/dL (3.4-5.0) 04/01/23 15:00 Glucose 131 mg/dL (74-106) H 04/01/23 20:30 C-Reactive Protein 3.02 mg/dL (0.0-0.3) H 04/01/23 15:00 Liver Function Panel: 2 Alanine Aminotransferase (ALT/SGPT) 31 U/L (16-63) 04/01/23 15: 00 Aspartate Amino Transf (AST/SGOT) 24 U/L (15-37) 04/01/23 15:00 Coagulation Panel: 2 No Data to Display Cardiac Panel: 2 No Data to Display Arterial Blood Gas: 2 No Data to Display Venous Blood Gas: 2 No Data to Display Pancreas Panel: 2 No Data to Display Thyroid Panel: 2 No Data to Display Infectious Disease: 2 Coronavirus (COVID-19)(PCR) Negative (Negative) 04/01/23 17:46 Coronavirus 2019 Source Nasal/Nares 04/01/23 17:46 Blood Cultures: 2 No Data to Display Toxicology Panel: 2 No Data to Display Anesthesia Assessment and Plan Anesthesia History Personal History: No History of Anesthesia Complications Family History: No Family History of Anesthesia Complications Exercise Tolerance Exercise Tolerance: Metabolic Equivalents>4 Pertinent Negatives Pertinent Negatives: No Symptoms of GERD, No Major Cardiovascular Symptoms or Complaints and No Major Pulmonary Symptoms or Complaints Cardiac & Pulmonary Exam Cardiac Exam: Normal S1/S2 Heart Sounds Pulmonary Exam: Clear Bilateral Breath Sounds Implantable Cardiac Device Does patient have a Pacemaker or an ICD?: No Airway Exam Known Difficult Airway: No Mallampati Class: 3 Mouth Opening: Normal (> 3cm) Thyromental Distance: Greater than 3 cm Facial Hair: Full Adams Neck Range of Motion: Full ROM Neck Circumference: Normal Teeth Condition: Normal Dentition ASA Classification ASA Score: ASA 2 Emergency Case?: No NPO Status NPO Status: NPO Clears >2 hours, Solids >8 hours Anesthesia Plan Resuscitation Status: Full Code Anesthesia Technique: General Anesthesia Airway Planned: Natural Airway Monitors Used: Standard Monitors
[2023-04-02] MEDS: Pantoprazole 40 MG VIAL IVP (09:46)
--- NOTE | 2023-04-02 10:35 | PDOC.CMIN ---
Date of service: 04/02/23 Time of Service: 10:35 Care Management Initial Assmt Initial Assessment REASON FOR HOSPITALIZATION:: perirectal abscess PREVIOUS FUNCTIONAL STATUS/SOCIAL/FAMILY SUPPORTS:: Vimal lives in a mobile home in [place], [place] with his ficem?e and 2 children. He works at [employer] in [facility]. Vimal is independent at baseline and does not receive any community services. CURRENT FUNCTIONAL STATUS:: Vimal was lying in bed visiting with his family when CM met with him. He had surgery today to drain a perirectal abscess. Vimal stated that he is not sure what the plan will be regarding discharge. He knows that he needs to remain at [facility] at least one more night. Vimal is afebrile and his vital signs are stable. He does not anticipate needing any services at discharge but is open to home health if needed. ADVANCE DIRECTIVES:: none Has patient been provided with info about the portal/API?: Yes Did the patient sign up for the portal?: No CODE STATUS:: Full Code INSURANCE COVERAGE / FINANCIAL ISSUES:: [employer] [facility] CURRENT HOME/COMMUNITY SERVICES/EQUIPMENT:: none currently PRIMARY CARE PHYSICIAN:: Roseanna Ponce POTENTIAL DISCHARGE NEEDS:: Follow up with surgeon PATIENT/FAMILY EDUCATION NEEDS:: review of discharge instructions, wound care, limitations, activity, follow up plan, discuss [employer] Me [employer]. TRANSPORTATION:: via private vehicle with girlfriend PLAN:: Anticipate Vimal will be discharged home, possibly with new home health orders for dressing changes if additional surgery required. He will follow up with his surgeon and plan of care and transport with a friend. CM to follow and assess for discharge needs. PFSH All Active Problems (Updated 04/02/23 @ 07:03 by Alannah Arriola MD) Perirectal abscess (Acute) Sepsis (Acute) Abscess (Acute) Acute pain of right knee (Acute) Tobacco abuse (Acute) Hyperlipidemia (Acute) Family history of ischemic heart disease (Acute) Medical History Low back pain radiating to both legs Resolved with PT and work restrictions. MMI on 03/06/2022. Social History Smoking/Tobacco Use Status: Current every day Tobacco Type: cigarettes Smoking risk assessment performed?: Yes Drug use: Never Substance use type: does not use Housing: house Do you feel safe at home: Yes Do you feel safe in your relationship?: Yes
[2023-04-02] MEDS: Bupivacaine LIPOSOME/PF 133 MG/10 ML VIAL IJ (13:00)
[2023-04-02] MEDS: Bupivacaine 0.25% Pres-Free 30 ML VIAL (13:00)
--- NOTE | 2023-04-02 13:06 | W.ANESVAS ---
Midline Placement Date Performed: 04/02/23 Procedure Time: 13:00 Requesting Provider: Carol Pond Procedure Location: Operating Room Sedation Given (Indicate Dose Given): No Sedation given Patient Mental Status: Performed under general anesthesia Sterility: Hand Hygiene, Surgical Cap, Surgical Mask, Sterile Gloves, Sterile Drape/Sheet and Chlorhexidine Laterality: Right Insertion Site: Basilic Midline Device: PowerGlide Pro 20G Catheter Length: 10 cm Midline Procedure Procedure: 1% Lidocaine to skin and subcutaneous tissue with 25g needle, Vessel accessed with catheter over needle and Catheter placed without resistance Dressing: Statlock Applied Blood Return: Present Flushes: Easily Ultrasound: Sterile probe cover and gel used Ultrasound Image Saved?: Yes Number of Attempts (See previous attempts in note section): 2 Procedure Tolerated: No Complications Procedure Outcome: Successful Performed By: Christopher Nino
--- NOTE | 2023-04-02 13:45 | W.ANESPOSTOP ---
Postoperative Evaluation Date, Time and Location Date Performed: 04/02/23 Time Performed: 13:45 Patient Location: PACU Vital Signs Most Recent Imported Vital Signs: Most Recent Vital Signs Temp Pulse Resp BP Pulse Ox 37.1 C 82 16 125/84 96 04/02/23 13:17 04/02/23 13:27 04/02/23 13:27 04/02/23 13:27 04/02/23 13:27 Pain Score Most Recent Pain Score: Most Recent Pain Score Pain Level [perirectal] 4 04/02/23 08:00 Pain Level [Generalized] 4 04/02/23 08:00 Pain Level 1 04/02/23 13:27 Assessment Mental Status: Awake (Alert & Oriented to Patient Baseline) Airway and Respiratory Function: Patent airway with normal (patient baseline) respiratory exam Cardiovascular Function: Hemodynamically Stable Hydration Status: Adequately Hydrated Nausea & Vomiting: No Nausea or Vomiting Pain: Pain is tolerable per patient Peripheral Nerve Block: Patient did not receive a nerve block
[2023-04-02] MEDS: Docusate Sodium 100 MG CAP PO ×2 (14:41→19:37)
[2023-04-02] MEDS: Nicotine 2 MG GUM CH (20:51)
[2023-04-03] MEDS: Lactated Ringers 1,000 ML 125 ML IV (02:51)
[2023-04-03] MEDS: PIPERACILLIN/TAZO 3.375 GM in Normal Saline 50 ML IVPB ×4 (03:32→21:06)
[2023-04-03 04:25] VITALS: BP 122/77; PULSE 67; RESP 18; TEMP 36.3; O2SAT 96
[2023-04-03 07:45] LABS: Abs Immature Grans 0.08 10^3/uL (0.0-0.06); Absolute Basophil Count 0.05 10^3/uL (0.0-0.2); Absolute Eosinophil Count 0.07 10^3/uL (0.0-0.7); Basophils % 0.3; Eosinophils % 0.4; HCT 38.1 % (40.0-50.0); HGB 13.3 g/dL (13.5-17.5); Immature Grans % 0.5; Lymphocytes % 10.3; MCH 30.3 pg (27.0-33.0); MCHC 34.9 % (32.0-36.0); MCV 87 fL (80-95); MPV 8.6 fL (8.0-11.0); Monocytes % 8.2; Neutrophils % 80.3; Platelet Count 330 10^3/uL (130-400); RBC 4.39 10^6/uL (4.36-5.78); RDW 11.2 % (11.8-14.1); RDW-SD 35.9 fL; WBC 17.04 10^3/uL (4.4-10.8)
[2023-04-03 07:48] LABS: Absolute Lymphocyte Count 1.76 10^3/uL (1.2-3.4); Absolute Neutrophil Count 13.68 10^3/uL (1.2-6.7)
--- NOTE | 2023-04-03 08:08 | W.PM.PROGNOT ---
Date of Service Date of service: 04/03/23 Time of Service: 08:09 Assessment and Plan Assessment and plan (1) Perirectal abscess: Status: Acute Assessment and plan: Currently on Zosyn WBC returned this morning and has increased to 17.04 this morning. No fevers. However sounds like subjective chills intermittently through the night Pain control with morphine, IV Tylenol and Toradol. GI prophylaxis with an antacid. Discussed with Vimal, would like to arrange a time for dressing change with his partner, to allow for education for he states she will perform dressing changes at home. Activity as tolerated. Encouraged ambulation and sitting in the chair throughout the day. P// Continue IV antibiotics and facilitate wound care education with patient and his partner. wound 3x.5x2cm Edges are clean dry and intact with no redness or edema. There is no purulence. There is minimal granulation tissue. Wound was washed with wound cleanser and repacked with 1 inch packing. Patient taught procedure well. Plan discharged in a.m. Patient significant other will be able to do dressing changes at home. Supplies at bedside -Patient also has a pilonidal cyst tract. There is no current infection. But he has been having infections off and on. We discussed that this is a separate problem and that to prevent any further abscesses he should have definitive surgery/excision of the pilonidal cyst in the future. (2) Pilonidal sinus without abscess: Status: Acute (3) Tobacco abuse: Status: Acute (4) Hyperlipidemia: Status: Acute (5) Family history of ischemic heart disease: Status: Acute Subjective Subjective Interval history since last seen: Arrived with patient resting comfortably in bed. He states that his pain is well controlled at this time. He states that he has been feeling really hot and cold on and off since waking from his I&D. He denies any nausea or vomiting. Exam Const General: cooperative, healthy appearing and comfortable Orientation: alert and oriented x3 Resp Effort & Inspection: normal respiratory effort, no audible wheezes and no cough Objective Last Vital Signs Temp 36.3 C L 04/03/23 04:25 Pulse 67 04/03/23 04:25 Resp 18 04/03/23 04:25 BP 122/77 04/03/23 04:25 Pulse Ox 96 04/03/23 04:25 Laboratory Results - last 24 hr 04/03/23 07:34 WBC 17.04 H RBC 4.39 Hgb 13.3 L Hct 38.1 L MCV 87 MCH 30.3 MCHC 34.9 RDW 11.2 L Plt Count 330 MPV 8.6 Immature Gran % 0.5 Neutrophils % 80.3 Lymphocytes % 10.3 Monocytes % 8.2 Eosinophils % 0.4 Basophils % 0.3 Nucleated RBC % 0.0 Absolute Neutrophils 13.68 H Absolute Lymphocytes 1.76 Absolute Monocytes 1.40 H Absolute Eosinophils 0.07 Absolute Basophils 0.05 Time Spent with Patient Time Spent with Patient: 25-34 minutes Time was spent: preparing to see the patient(eg.review tests), obtaining and/or reviewing separately otained hiistory, ordering medications,tests, procedures, referring, communicating with other health career development consultant, indepentently interpreting results, counseling the patient and care coordination
[2023-04-03] MEDS: Docusate Sodium 100 MG CAP PO ×3 (09:48→19:46)
--- NOTE | 2023-04-03 12:16 | PDOC.CMPRO ---
Date of service: 04/03/23 Time of Service: 12:16 Care Management Progress Note Progress Note Text Progress Note Text: S/O:Vimal was sitting up in bed when CM met with him. He was pleasant and engaged easily with CM. Vimal informed CM that he had his dressing and packing changed shortly before the visit and that it was very painful. CM suggested that he take pain medicine about an hour before planned dressing changes when he goes home. His fiancee will be doing the dressing changes. vimal also indicated that he would need a return to work note at the time of discharge, which CM will provide. A:Vimal is a 33 year old man admitted on 04/01/23 with a tali-rectal abscess P:Anticipate Vimal will be discharged home with no new services. He will follow up with his surgeon and plan of care and transport with a friend. CM to follow and assess for discharge needs.
[2023-04-03] MEDS: Ketorolac 15 MG/ML VIAL IVP ×3 (13:00→23:29)
[2023-04-03] MEDS: MORPHine 2 MG/ML SYR IVP (13:03)
[2023-04-03 13:06] VITALS: BP 124/83; PULSE 87; RESP 20; TEMP 37.4; O2SAT 97
[2023-04-03 14:59] VITALS: BP 121/80; PULSE 108; RESP 20; TEMP 36.4; O2SAT 96
[2023-04-03] MEDS: Acetaminophen 500 MG TAB 1000 MG PO ×2 (15:51→19:46)
[2023-04-03] MEDS: Normal Saline Flush 10 ML SYR IVP ×2 (15:51→21:06)
[2023-04-03] MEDS: Polyethylene Glycol 3350 17 GM PACKET PO (18:38)
[2023-04-03] MEDS: Bisacodyl 5 MG TABEC PO (18:38)
[2023-04-03 19:58] VITALS: BP 121/80; PULSE 69; RESP 18; TEMP 36.9; O2SAT 96
[2023-04-03 20:22] VITALS: O2SAT 96
[2023-04-04] MEDS: Acetaminophen 500 MG TAB 1000 MG PO ×2 (01:41→07:48)
[2023-04-04] MEDS: Milk of Magnesia 30 ML CUP PO (02:13)
[2023-04-04] MEDS: MORPHine 2 MG/ML SYR IVP (02:14)
[2023-04-04] MEDS: Normal Saline Flush 10 ML SYR IVP ×2 (04:24→05:50)
[2023-04-04] MEDS: PIPERACILLIN/TAZO 3.375 GM in Normal Saline 50 ML IVPB (04:24)
[2023-04-04] MEDS: Ketorolac 15 MG/ML VIAL IVP ×2 (05:49→11:21)
[2023-04-04 07:41] VITALS: BP 103/70; PULSE 74; RESP 18; TEMP 36.6; O2SAT 93
[2023-04-04 07:44] LABS: Abs Immature Grans 0.07 10^3/uL (0.0-0.06); Absolute Eosinophil Count 0.41 10^3/uL (0.0-0.7); Absolute Lymphocyte Count 2.79 10^3/uL (1.2-3.4); Absolute Neutrophil Count 7.92 10^3/uL (1.2-6.7); Basophils % 0.8; Eosinophils % 3.2; HCT 39.8 % (40.0-50.0); HGB 13.7 g/dL (13.5-17.5); Immature Grans % 0.6; MCH 30.2 pg (27.0-33.0); MCHC 34.4 % (32.0-36.0); MCV 88 fL (80-95); MPV 8.7 fL (8.0-11.0); Neutrophils % 62.4; Platelet Count 351 10^3/uL (130-400); RBC 4.53 10^6/uL (4.36-5.78); RDW 11.6 % (11.8-14.1); RDW-SD 37.2 fL; WBC 12.69 10^3/uL (4.4-10.8)
[2023-04-04] MEDS: Docusate Sodium 100 MG CAP PO (07:49)
[2023-04-04] MEDS: Amoxicillin 875/Clav. 125 TAB PO (10:02)
--- NOTE | 2023-04-04 11:35 | W.PM.OP ---
Date of service: 04/02/23 Time of Service: 13:00 Operative Note Operative Note DATE OF PROCEDURE: 04/02/23 PRE-OP DIAGNOSIS: Perianal abscess PROCEDURE: Anorectal exam under anesthesia with incision and drainage of perianal abscess SURGEON: Talha Lr ANESTHESIA TYPE: Local By Surgeon and General:No Airway Refer to Anesthesia Record ESTIMATED BLOOD LOSS: 20 PATHOLOGY: other (Abscess for Gram stain and culture) COMPLICATIONS: None Patient was transported to: PACU Patient's condition: stable Indications: Vimal is a 33-year-old male with several days of increasing perianal pain. He underwent a CAT scan that demonstrated a perianal abscess. Attempts were made at incision and drainage in the emergency department, but this was insufficient. Findings: Normal external anorectal exam with left-sided perianal abscess Procedure Description: I met with the patient in the perioperative area, we confirmed the appropriate location, and plan for surgery. He provided informed consent. Next we moved to the operating room, and he was assisted onto the table. After the induction of anesthesia, he was assisted to lithotomy position. Great care was taken to pad him appropriately. Next, I prepped and draped the perineum and anus. I began with a detailed examination of the previous incision site. Skin and subcutaneous tissues were clean, there are no signs of active infection here. There was a fluctuant area slightly anterior to the incision site. Next, I performed a complete anorectal exam. There were no signs of pathologic external hemorrhoids. The external anal verge all were normal. The anal column appeared normal. I did not see any signs of active fistula in the note. There were no anal or distal rectal masses. Digital rectal exam felt normal. Visual examination with anal dilators was normal. Next, I exchanged my gloves, and turned my attention back to the abscess site. I established a generous field block using Exparel. Using the previous incision site, I was able to dissect some of the subcutaneous tissues debride anterior towards the fluctuant target. I bluntly dissected into the abscess cavity. Purulent fluid was drained. Next, with hemostats elevating the skin tract, I extended the skin incision more anterior over to fluctuant space. This allowed the cavity to drain directly. There were no significant loculations on digital exam. I irrigated the cavity clean, and gently packed it with quarter inch iodoform gauze. The abscess cavity was approximately 4 cm x 2 cm x 3 cm . I extended the gauze down into the previous incision site to prevent any further infection here. Yesenia-pad was placed, and the patient was moved back to the supine position with mesh undergarments to hold bandaging intact.
--- NOTE | 2023-04-04 12:14 | W.PM.DSUDISC ---
Date of service: 04/04/23 Time of Service: 12:14 Discharge Plan Disposition Patient Disposition: Home Condition: Serious Condition: Improving Discharge Details Reason For Visit: perirectal abcess Admit Date/Time: 04/01/23 17:38 Admit Provider: Alannah Arriola Attending Provider: Alannah Arriola Primary Care Provider: DAVID WILEY [facility] Hospital Course: Vimal is 33 years old. He presented to the ED with several days of increasing tali-anal pain. He had a leukocytosis. He underwent CT scan that showed a tali-rectal abscess. He underwent attempted drainage in the ED and he was started on zosyn. His pain and WBC increased the next morning. Repeated CT scan showed retained abscess, and he was brought to the OR for EUA with more drainage. WBC count and pain improved over the next 24 hours. Wound care was taught to the patient and his girlfriend, and he was discharged home with instructions and a follow up visit. Home Meds and New Rx's Prescriptions: New amoxicillin-pot clavulanate 500-125 mg tablet 1 tab PO BID Qty: 14 0RF Rx Instructions: take one tablet by mouth in the morning and one in the evening. oxycodone 5 mg tablet 5 mg PO Q8H PRNQty: 9 0RF Rx Instructions: take one tablet by mouth up to every 8 hours if needed for severe pain Continued albuterol sulfate 90 mcg/actuation HFA aerosol inhaler INHALATION Patient Comments: INHALE 2 PUFFS BY MOUTH EVERY 4 HOURS NEEDED Discontinued metronidazole 500 mg tablet 500 mg PO BID Patient Comments: TAKE 1 TABLET BY MOUTH THREE TIMES DAILY cefuroxime axetil 500 mg tablet 500 mg PO BID Patient Comments: TAKE 1 TABLET BY MOUTH TWICE DAILY Discharge Instructions Instructions: Anorectal Abscess and Anal Fistula (GEN), Abscess Incision and Drainage (DC) Additional Instructions: 1. Resume all of your medications. 2. Okay to use tylenol and ibuprofen over the counter as needed for pain. I suggest alternating the two. Use oxycodone as needed for severe pain. 3. Obtain a sitz bath from any pharmacy, or use your regular bathtub. Soak for 10-15 minutes in warm water, warm water mixed with half a cup of baking soda, or Epson salts after each bowel movement, or up to 5 times per day as needed for pain. AFter a soak, gently replace packing as best you can. The wound will start closing from the inside out. A nestrual pad is also helpful to protect clohting. 4. Use over the counter stool softeners such as metamucil or miralax to maintain soft bowl movments. 5.Call the office (or go directly to the emergency room after hours) if you notice any of the following: Develop chills (warm to touch), or if you have a thermometer and your temperature is above 101 Difficulty breathing or difficultly swallowing Persistent vomiting Any bleeding ? exceeding one tablespoon 6. Call your physician if the site where your intravenous was started becomes red, swollen, painful, and warm to touch. Referrals: Talha Lr MD [ [facility] STAFF PHYSICIAN] - (Vimal needs to follow up in our office next week with any provider) Activity:: Activity as Tolerated Equipment/Supplies:: No Equipment Needed Diet:: As Tolerated DS: Diagnosis Discharge Diagnosis (1) Perirectal abscess: Status: Acute (2) Pilonidal sinus without abscess: Status: Acute (3) Tobacco abuse: Status: Acute (4) Hyperlipidemia: Status: Acute (5) Family history of ischemic heart disease: Status: Acute
--- NOTE | 2023-04-04 12:30 | W.PM.PROGNOT ---
Date of Service Date of service: 04/05/23 Time of Service: 12:30 Assessment and Plan Assessment and plan (1) Perirectal abscess: Status: Acute Assessment and plan: I think Vimal is making a nice improvement after drainage of the abscess. Further Gram stain and culture data are all negative. White blood cell count is improving, he has been afebrile. He seems comfortable with the packing and wound care at home. Plan to discharge him today with a 7-day course of antibiotics, and follow-up in the office next week. Subjective Subjective Interval history since last seen: Vimal looks a lot better today. He is up and walking around. His pain is markedly improved compared to yesterday. He has been eating okay moving his bowels. Exam GI Other: Wound is clean there is minimal erythema Objective Last Vital Signs Temp 97.9 F 04/04/23 07:41 Pulse 74 04/04/23 07:41 Resp 18 04/04/23 07:41 BP 103/70 04/04/23 07:41 Pulse Ox 93 04/04/23 07:41 Laboratory Results - last 24 hr 04/04/23 07:30 WBC 12.69 H RBC 4.53 Hgb 13.7 Hct 39.8 L MCV 88 MCH 30.2 MCHC 34.4 RDW 11.6 L Plt Count 351 MPV 8.7 Immature Gran % 0.6 Neutrophils % 62.4 Lymphocytes % 22.0 Monocytes % 11.0 Eosinophils % 3.2 Basophils % 0.8 Nucleated RBC % 0.0 Absolute Neutrophils 7.92 H Absolute Lymphocytes 2.79 Absolute Monocytes 1.40 H Absolute Eosinophils 0.41 Absolute Basophils 0.10 Time Spent with Patient Time Spent with Patient: <25 minutes Time was spent: preparing to see the patient(eg.review tests), indepentently interpreting results and counseling the patient
--- NOTE | 2023-04-04 17:14 | PDOC.CMDIS ---
Date of service: 04/04/23 Time of Service: 17:14 LACE Index Scoring Tool Questions: Length of Stay (in days): 3 Was the patient admitted via the E.D.?: Yes E.D. Visits: 1 Answers: Total Score: 7 Risk of Readmission: Low Risk Care Management Discharge Plan Reason for Hospitalization: perirectal abscess Discharge Plan: Vimal will be discharged home with no new services. He will follow up with his surgeon and plan of care and transport with a friend. Patient/Family Education Needs: review of discharge instructions, wound care, limitations, activity, follow up plan, discuss Ask Me Three.
== END 2023-04-04 13:24 | disposition home or self-care (01) ==
LOC: ER 18:09 → MS 18:44
PROVIDERS: Physical Therapy Assistant; Surgery; Admitting Provider Surgery; Emergency Provider Student in an Organized Health Care Education/Training Program; PCP Nurse Practitioner Family; Visit Provider Surgery
PROC: (CPT 46040; principal; 2023-04-02 12:30)
DX: K61.2 Anorectal abscess (principal); E78.5 Hyperlipidemia, unspecified; L05.91 Pilonidal cyst without abscess; F17.210 Nicotine dependence, cigarettes, uncomplicated; Z82.49 Family history of ischemic heart disease and other diseases of the circulatory system; Z79.899 Other long term (current) drug therapy
CPT/HCPCS: 46050; 36410; 36415; 76942; 80048; 80053; 85652; 87040; 87635; 96361; 96365; 96366; 96367; 96368; 96375; 96376; 99291; 71046; 72193; 74177; 81003; 81015; 83605; 85025; 86140; 87070; 87075; 87205; G0378; J0131; J1100; J1885; J2001; J2020; J2250; J2270; J2405; J2543; J3010; J3490

== ENCOUNTER 2024-03-25 23:59 | Outpatient (REF) | payer OTHER, SELFPAY ==
[2024-03-25 19:57] LABS: Abs Immature Grans 0.04 10^3/uL (0.0-0.06); Absolute Basophil Count 0.09 10^3/uL (0.0-0.2); Absolute Eosinophil Count 0.25 10^3/uL (0.0-0.7); Absolute Lymphocyte Count 2.31 10^3/uL (1.2-3.4); Absolute Monocyte Count 0.77 10^3/uL (0.1-0.8); Absolute Neutrophil Count 4.05 10^3/uL (1.2-6.7); Basophils % 1.2 %; Eosinophils % 3.3 %; HCT 44.3 % (40.0-50.0); HGB 15.4 g/dL (13.5-17.5); Immature Grans % 0.5 %; Lymphocytes % 30.8 %; MCH 30.6 pg (27.0-33.0); MCHC 34.8 % (32.0-36.0); MCV 88 fL (80-95); MPV 9.7 fL (8.0-11.0); Monocytes % 10.3 %; Neutrophils % 53.9 %; Platelet Count 310 10^3/uL (130-400); RBC 5.04 10^6/uL (4.36-5.78); RDW 11.9 % (11.8-14.1); RDW-SD 38.3 fL; WBC 7.51 10^3/uL (4.4-10.8)
[2024-03-25 20:28] LABS: TSH 0.74 uIU/mL (0.36-3.74)
[2024-03-25 20:48] LABS: Hemoglobin A1C 5.4 % (<5.7)
[2024-03-25 21:04] LABS: ALT 39 U/L (16-63); AST 17 U/L (15-37); Albumin 4.1 g/dL (3.4-5.0); Alkaline Phosphatase 88 U/L (46-116); Anion Gap 13.4 mmol/L (3-11); BUN 11 mg/dL (7-18); CO2 24.6 mmol/L (21.0-32.0); CREATININE 0.9 mg/dL (0.70-1.30); Calcium 9.6 mg/dL (8.5-10.1); Chloride 104 mmol/L (98-107); Cholesterol 269 mg/dL (<200); Estimated GFR 113.51 (mL/min/1.73m2); Glucose 101 mg/dL (74-106); HDL Cholesterol 40 mg/dL (40-60); Potassium 4.1 mmol/L (3.5-5.1); Sodium 142 mmol/L (136-145); Total Protein 7.4 g/dL (6.4-8.2); Triglyceride 538 mg/dL (<150)
[2024-03-25 21:32] LABS: LDL CHOLESTEROL 138 mg/dL (<100)
== END 2024-03-26 | disposition home or self-care (01) ==
LOC: NCHCN 23:59
PROVIDERS: PCP Nurse Practitioner Family; Visit Provider Nurse Practitioner Family
DX: Z00.00 Encounter for general adult medical examination without abnormal findings (principal)
CPT/HCPCS: 80053; 80061; 83721; 83036; 84443; 85025

== ENCOUNTER 2024-08-04 13:59 | Outpatient (REF) | payer OTHER, SELFPAY ==
[2024-08-04 16:53] LABS: ALT 37 U/L (16-63); AST 13 U/L (15-37); Albumin 3.8 g/dL (3.4-5.0); Alkaline Phosphatase 87 U/L (46-116); Anion Gap 7.6 mmol/L (3-11); BUN 11 mg/dL (7-18); Bilirubin, Total 0.5 mg/dL (0.2-1.0); CO2 29.4 mmol/L (21.0-32.0); Calcium 9.3 mg/dL (8.5-10.1); Calculated LDL 70 mg/dL (<100); Chloride 106 mmol/L (98-107); Cholesterol 161 mg/dL (<200); Estimated GFR 100.03 (mL/min/1.73m2); Glucose 75 mg/dL (74-106); HDL Cholesterol 41 mg/dL (>or=40); Potassium 4.4 mmol/L (3.5-5.1); Sodium 143 mmol/L (136-145); Total Protein 6.7 g/dL (6.4-8.2); Triglyceride 251 mg/dL (<150)
== END 2024-08-04 14:00 | disposition home or self-care (01) ==
LOC: NCHCN 13:59
PROVIDERS: PCP Nurse Practitioner Family; Visit Provider Nurse Practitioner Family
DX: E78.5 Hyperlipidemia, unspecified (principal)
CPT/HCPCS: 80053; 80061

== ENCOUNTER 2024-08-31 20:41 | Observation (INO) | payer OTHER, SELFPAY ==
[2024-08-31] VITALS (28 sets, daily range): BP systolic 124–172; BP diastolic 87–114; PULSE 64–103; RESP 11–28; TEMP 36.4–36.8; O2SAT 93–100
--- NOTE | 2024-08-31 20:30 | RT.EKG_ITS ---
APPROVED REPORT Exam: Resting ECG Reason for Exam: chest pain Patient Location: E HR:93 bpm ECG Measurements Heart Rate 93 AXIS PA 130 P 70 QRSd 78 QRS 44 QT 315 T 32 QTc 391 Conclusion Sinus rhythm, rate 93 No interval abnormalities No STEMI Flattening/inversion T wave lead III No priors available for comparison
--- NOTE | 2024-08-31 20:45 | DI.RAD_ITS ---
Exam(s) XR CHEST 2V PA LATERAL EXAM: XR CHEST 2V PA LATERAL CLINICAL HISTORY: chest pain TECHNIQUE: 2D digital imaging was performed. Two views. COMPARISON: No exams were available for comparison FINDINGS: HEART: Normal size. Aorta: Not dilated. PULMONARY VASCULATURE: Normal. MEDIASTINUM: Unremarkable. LUNGS: Clear. PLEURAL SPACE: No pleural effusion or pneumothorax. BONE:Stable mild anterior wedging of the midthoracic vertebral bodies and mild degenerative changes i n the thoracic spine. SOFT TISSUES: Unremarkable. IMPRESSION: No acute abnormality. DATA REPOSITORY: RADIATION DOSE DELIVERED:
--- NOTE | 2024-08-31 20:56 | ED.GENADUL_ITS ---
Discharge Plan Disposition Patient Disposition: Admit to [facility] Condition: Stable Discharge Details Chief Complaint: Chest Pain Clinical Impression: Chest pain of uncertain etiology Primary Care Provider: DAVID WILEY ED Provider: Chilo Robertson Home Meds and New Rx's Prescriptions: No Action albuterol sulfate 90 mcg/actuation HFA aerosol inhaler 2 puff INHALATION QID PRN Patient Comments: INHALE 2 PUFFS BY MOUTH EVERY 4 HOURS NEEDED atorvastatin 10 mg tablet 10 mg PO DAILY Patient Comments: TAKE 1 TABLET BY MOUTH EVERY DAY DIRECTED FOR HIGH CHOLESTEROL tadalafil 5 mg tablet 8.5 mg PO DAILY HPI General Date/Time Provider Initiated Documentation: 08/31/24 20:56 . HPI Narrative: 34 year-old male presents to ED today by POV/ambulating with a chief complaint of left-sided chest pain radiating into his arm with left arm numbness and dizziness starting at 1915, states he has been dealing with this issue more frequently over the past 2 months but tonight's was severe. Quality described as crushing left-sided chest pain with radiation into arm, dizziness, denies near syncope, no radiation to shortness of breath, cough, hemoptysis, fever, abdominal pain, nausea or vomiting. Severity is described as 8 out of 10 at onset, currently 4/10. Palliating factors include took Tylenol with only some relief. Provoking factors include does not equate more frequency of his chest pain lately with exertion. Events leading up to the incident/Associated Symptoms: Patient states his father and all 3 uncles all had heart attacks in their 30s with his father having an WI at 32, states he has high cholesterol. Patient not anticoagulated. Related Data Home Medications ?Medication ?Instructions ?Recorded ?Confirmed albuterol sulfate 90 mcg/actuation 2 puff inhalation QID PRN 04/01/23 08/31/24 aerosol inhaler atorvastatin 10 mg tablet 10 mg PO DAILY 08/31/24 08/31/24 tadalafil 5 mg tablet 8.5 mg PO DAILY 08/31/24 08/31/24 Allergies Allergy/AdvReac Type Severity Reaction Status Date / Time No Known Allergies Allergy Verified 08/31/24 20:47 General Stated Complaint: Chest Pain JOJO: 3 Review of Systems All systems reviewed & are unremarkable except as noted in HPI and below Exam Narrative Exam Narrative: GENERAL APPEARANCE: Well-nourished, non-toxic, awake and alert, atraumatic, mild acute distress. SKIN: Warm, pink, diaphoretic, intact, without rashes/lesions/ulcerations. HEAD: Normocephalic, atraumatic, normal hair distribution for gender/age. EYES: Normal conjunctiva, no exudates on lids/lashes. ENT: Nares patent, no circumoral cyanosis, no facial swelling NECK: Supple, trachea midline, painless cervical ROM. LUNGS/CHEST: Lungs CTA bilaterally-no rhonchi/rales/wheezes diffusely, non- labored respirations, normal A/P diameter, symmetrical expansion, no chest wall deformity HEART (CV/PV): Regular rate and rhythm without murmur, no peripheral edema, no JVD, no carotid bruit bilaterally. ABDOMEN: Soft, non-distended, no guarding, no tenderness. MSK: Normal ROM, no swelling/deformity to bilateral UEs or LEs, moving all extre mities without weakness, no cyanosis, spine midline without tenderness, normal curvature. NEURO: Mental Status AAOx4 - alert to person, place, time, events No facial droop, no forehead involvement. Motor: No focal weakness - strength 5/5 in bilateral UEs and LEs, proximal and distal, symmetric. Sensory: sensation intact to light touch globally. Gait normal: patient ambulated without ataxia into ED room. PSYCH: euthymic, cooperative, pleasant, appropriate speech Course Vital Signs Vital signs: Vital Signs Temperature 36.8 C 08/31/24 20:44 Pulse 95 H 08/31/24 20:44 Respiratory Rate 20 08/31/24 20:44 Blood Pressure 172/112 H 08/31/24 20:44 Pulse Oximetry 100 08/31/24 20:44 Temperature 36.8 C 08/31/24 20:44 Temperature Source Tympanic 08/31/24 20:44 Pulse 93 H 08/31/24 20:54 Pulse 92 H 08/31/24 20:54 Respiratory Rate 11 L 08/31/24 20:54 Blood Pressure 172/112 H 08/31/24 20:44 Blood Pressure Position Supine 08/31/24 20:44 Pulse Oximetry 98 08/31/24 20:54 Oxygen Delivery Method Room Air 08/31/24 20:44 Oxygen Flow Rate 0 08/31/24 20:44 Medical Decision Making This dictation utilizes [id number] dictation software and may contain unedited grammatical errors. 34 year-old male presents to ED today by POV/ambulating with a chief complaint of left-sided chest pain radiating into his arm with left arm numbness and dizziness starting at 1915, states he has been dealing with this issue more frequently over the past 2 months but tonight's was severe. Quality described as crushing left-sided chest pain with radiation into arm, dizziness, denies near syncope, no radiation to shortness of breath, cough, hemoptysis, fever, abdomin al pain, nausea or vomiting. Severity is described as 8 out of 10 at onset, currently 4/10. Palliating factors include took Tylenol with only some relief. Provoking factors include does not equate more frequency of his chest pain lately with exertion. Events leading up to the incident/Associated Symptoms: Patient states his father and all 3 uncles all had heart attacks in their 30s with his father having an WI at 32, states he has high cholesterol. Patients' medical history: Tobacco use, hyperlipidemia. Family and social history: Denies IVDU, no recent travel or sick contacts. Pertinent exam findings / vital signs include benign cardiopulmonary exam without murmur, no carotid bruit bilaterally, neuro intact, diaphoretic, no respiratory distress. Differential / pathologies of concern include ACS, unlikely PE, aortic dissection, pneumonia, anxiety, vasovagal response, costochondritis. Diagnostic studies of: - CBC, CMP, serial troponin, lipid panel, lipase, magnesium, EKG, chest x-ray. -CBC shows no leukocytosis -CMP without actionable abnormality -Initial troponin 5, repeat pending- unlikely to rise over 51, but Dr. Bolaños will update with result - 3hr ordered due to patients risk factors, fam hx -Lipase WNL -Magnesium WNL -lipid panel -EKG NSR @ 93, normal axis, normal intervals, poor R-wave progression, no ST changes, early repol -XR Chest shows no acute abnormality, no widened mediastinum- vRAD read pending on admission Interventions of: - 324 mg ASA, 2 mg morphine as needed. -Consult with Hospitalist for high-risk chest pain likely ED Course/Assessment/Plan: 34-year-old male presents with 8 out of 10 chest pain after getting out of the shower about an hour ago, pain is still at a level of 4 out of 10, he took Tylenol was given ASA and morphine, nitro as needed but pain resolved to 0/10 prior to nitro admin. Patient's father had an WI at age 32 along with his 3 brothers all having heart attacks in their 30s. Patient has no EKG changes, due to risk factors of having the patient should not get a third troponin if negative at that point I think he could be followed up outpatient. Patient has high risk chest pain and a heart score of 4, likely needs further specialized cardiac testing like echocardiogram and possibly stress test before his discharge. Findings not consistent with STEMI, dissection, PE, PNA. Disposition of Chest Pain of Uncertain Etiology. Patient verbalized understanding of the plan and return to ED criteria and engaged in shared decision making. Medical Records Medical records reviewed: Yes I reviewed the patient's medical records. Imaging Data Radiologic Study: Attestation: I personally reviewed and interpreted this imaging study as follows: Imaging: X-Ray My impression: No widened mediastinum, no acute pneumonia Lab Data Lab results reviewed: Yes I reviewed the patient's lab results. Labs: Laboratory Tests Range/Units 08/31/24 20:55 WBC (4.4-10.8) 10^3/uL 10.41 RBC (4.36-5.78) 10^6/uL 5.03 Hgb (13.5-17.5) g/dL 15.5 Hct (40.0-50.0) % 45.7 MCV (80-95) fL 91 MCH (27.0-33.0) pg 30.8 MCHC (32.0-36.0) % 33.9 RDW (11.8-14.1) % 12.2 Plt Count (130-400) 10^3/uL 265 MPV (8.0-11.0) fL 8.9 Immature Gran % % 0.4 Neutrophils % % 60.1 Lymphocytes % % 25.7 Monocytes % % 10.6 Eosinophils % % 2.4 Basophils % % 0.8 Nucleated RBC % (0.0-0.3) % 0.0 Absolute Neutrophils (1.2-6.7) 10^3/uL 6.26 Absolute Lymphocytes (1.2-3.4) 10^3/uL 2.68 Absolute Monocytes (0.1-0.8) 10^3/uL 1.10 H Absolute Eosinophils (0.0-0.7) 10^3/uL 0.25 Absolute Basophils (0.0-0.2) 10^3/uL 0.08 Sodium (136-145) mmol/L 140 Potassium (3.5-5.1) mmol/L 3.8 Chloride (98-107) mmol/L 105 Carbon Dioxide (21.0-32.0) mmol/L 27.7 Anion Gap (3-11) mmol/L 7.3 BUN (7-18) mg/dL 12 Creatinine (0.70-1.30) mg/dL 1.0 Est GFR (CKD-EPI 2020) (mL/min/1.73m2) 100.03 Glucose (74-106) mg/dL 81 Calcium (8.5-10.1) mg/dL 9.4 Magnesium mg/dL 2.1 Total Bilirubin (0.2-1.0) mg/dL 0.4 AST (15-37) U/L 14 L ALT (16-63) U/L 31 Alkaline Phosphatase (46-116) U/L 91 Troponin I (<or=76) ng/L 5 Total Protein (6.4-8.2) g/dL 7.2 Albumin (3.4-5.0) g/dL 3.9 Triglycerides (<150) mg/dL 140 Total Cholesterol (<200) mg/dL 164 LDL Cholesterol, Calc (<100) mg/dL 90 HDL Cholesterol (>or=40) mg/dL 46 H Lipase (<78) U/L 37 Quality:SDOH Health Related Social Needs: No Data to Display PFSH All Active Problems (Updated 08/31/24 @ 22:15 by IMAN Levy) Chest pain of uncertain etiology (Acute) Pilonidal sinus without abscess (Acute) Perirectal abscess (Acute) Acute pain of right knee (Acute) Tobacco abuse (Acute) Hyperlipidemia (Acute) Family history of ischemic heart disease (Acute) Medical History Low back pain radiating to both legs Resolved with PT and work restrictions. MMI on 03/06/2022. Surgical History Status post incision and drainage (~04/04/23) Social History Smoking/Tobacco Use Status: Current every day Tobacco Type: cigarettes Smoking risk assessment performed?: Yes Drug use: Never Substance use type: does not use Housing: house Do you feel safe at home: Yes Do you feel safe in your relationship?: Yes
[2024-08-31 21:06] LABS: Abs Immature Grans 0.04 10^3/uL (0.0-0.06); Absolute Basophil Count 0.08 10^3/uL (0.0-0.2); Absolute Eosinophil Count 0.25 10^3/uL (0.0-0.7); Absolute Lymphocyte Count 2.68 10^3/uL (1.2-3.4); Absolute Neutrophil Count 6.26 10^3/uL (1.2-6.7); Basophils % 0.8 %; Eosinophils % 2.4 %; HCT 45.7 % (40.0-50.0); HGB 15.5 g/dL (13.5-17.5); Immature Grans % 0.4 %; Lymphocytes % 25.7 %; MCH 30.8 pg (27.0-33.0); MCHC 33.9 % (32.0-36.0); MCV 91 fL (80-95); MPV 8.9 fL (8.0-11.0); Monocytes % 10.6 %; Neutrophils % 60.1 %; Platelet Count 265 10^3/uL (130-400); RBC 5.03 10^6/uL (4.36-5.78); RDW 12.2 % (11.8-14.1); RDW-SD 40.4 fL; WBC 10.41 10^3/uL (4.4-10.8)
[2024-08-31] MEDS: Normal Saline 500 ML IV (21:09)
[2024-08-31] MEDS: Aspirin 81 MG CHEW 324 MG CH (21:09)
[2024-08-31] MEDS: MORPHine 10 MG/ML VIAL 2 MG IVP (21:09)
[2024-08-31 21:22] LABS: Calculated LDL 90 mg/dL (<100); Cholesterol 164 mg/dL (<200); HDL Cholesterol 46 mg/dL (>or=40); Triglyceride 140 mg/dL (<150)
[2024-08-31 21:24] LABS: ALT 31 U/L (16-63); AST 14 U/L (15-37); Albumin 3.9 g/dL (3.4-5.0); Alkaline Phosphatase 91 U/L (46-116); Anion Gap 7.3 mmol/L (3-11); BUN 12 mg/dL (7-18); Bilirubin, Total 0.4 mg/dL (0.2-1.0); CO2 27.7 mmol/L (21.0-32.0); Calcium 9.4 mg/dL (8.5-10.1); Chloride 105 mmol/L (98-107); Estimated GFR 100.03 (mL/min/1.73m2); Glucose 81 mg/dL (74-106); Lipase 37 U/L (<78); Magnesium 2.1 mg/dL; Potassium 3.8 mmol/L (3.5-5.1); Sodium 140 mmol/L (136-145); Total Protein 7.2 g/dL (6.4-8.2); Troponin I 5 ng/L (<or=76)
[2024-08-31] MEDS: Ondansetron 4 MG/2 ML VIAL IVP (21:46)
--- NOTE | 2024-08-31 22:14 | DI.VRAD_ITS ---
PROCEDURE INFORMATION: Exam: XR Chest Exam date and time: 08/31/2024 9:21 PM Age: 34 years old Clinical indication: Other: Chest pain TECHNIQUE: Imaging protocol: Radiologic exam of the chest. Views: 2 views. COMPARISON: CR XR CHEST 2V PA LATERAL 04/01/2023 3:28 PM FINDINGS: Lungs: Unremarkable. No consolidation. Pleural spaces: Unremarkable. No pleural effusion. No pneumothorax. Heart/Mediastinum: Unremarkable. No cardiomegaly. Bones/joints: Unremarkable. IMPRESSION: No acute findings. Dictated and Authenticated by: Elan Hartmann MD. Orderin Ailyn Woo MD
[2024-08-31 22:15] LABS: Troponin I 6 ng/L (<or=76)
--- NOTE | 2024-08-31 23:23 | W.PC.ACHO ---
Registration Status: Primary Language: Preferred Language: ED Information & Data Chief Complaint Chest Pain 08/31/24 20:57 Triage Note left sided CP radiates to 08/31/24 20:44 left arm with left arm numbness and dizziness started approx 191 tonight. took APAP 2014 with no relief Medical / Surgical History (Last Reviewed 04/25/23 @ 09:31 by Talha Lr MD) Low back pain radiating to both legs (Last Reviewed 04/25/23 @ 09:31 by Talha Lr MD) Status post incision and drainage (~04/04/23) Most Recent Vital Signs Temperature 36.8 C 08/31/24 20:44 Temperature Source Tympanic 08/31/24 20:44 Pulse 75 08/31/24 22:40 Pulse 78 08/31/24 22:40 Respiratory Rate 18 08/31/24 22:40 Respiratory Effort Normal, Non-Labored 08/31/24 21:51 Respiratory Depth Normal 08/31/24 21:51 Respiratory Pattern Normal 08/31/24 21:51 Blood Pressure 142/91 H 08/31/24 22:31 Blood Pressure Mean 106 08/31/24 22:31 Blood Pressure Position Supine 08/31/24 20:44 Pulse Oximetry 96 08/31/24 22:40 Oxygen Delivery Method Room Air 08/31/24 20:44 Oxygen Flow Rate 0 08/31/24 20:44 Pain Level 3 08/31/24 21:09 Allergies No Known Allergies Allergy (Verified 08/31/24 20:47) Precautions Isolation Standard precaution 08/31/24 20:48 Active Medications Generic Name Dose Route Start Last Admin Trade Name Clarice PRN Reason Stop Dose Admin Morphine Sulfate 2 mg 08/31/24 21:02 08/31/24 21:09 Morphine 10 Mg/Ml Vial IVP 2 mg DIRECTED PRN Administration IV IV Catheter Type [Right Saline Lock Antecubital] IV Catheter Gauge [Right 18 Antecubital] Diagnostics 08/31/24 08/31/24 08/31/24 Range/Units 23:55 21:50 20:55 WBC 10.41 (4.4-10.8) 10^3/uL RBC 5.03 (4.36-5.78) 10^6/uL Hgb 15.5 (13.5-17.5) g/dL Hct 45.7 (40.0-50.0) % MCV 91 (80-95) fL MCH 30.8 (27.0-33.0) pg MCHC 33.9 (32.0-36.0) % RDW 12.2 (11.8-14.1) % Plt Count 265 (130-400) 10^3/uL MPV 8.9 (8.0-11.0) fL Immature Gran % 0.4 % Neutrophils % 60.1 % Lymphocytes % 25.7 % Monocytes % 10.6 % Eosinophils % 2.4 % Basophils % 0.8 % Nucleated RBC % 0.0 (0.0-0.3) % Absolute Neutrophils 6.26 (1.2-6.7) 10^3/uL Absolute Lymphocytes 2.68 (1.2-3.4) 10^3/uL Absolute Monocytes 1.10 H (0.1-0.8) 10^3/uL Absolute Eosinophils 0.25 (0.0-0.7) 10^3/uL Absolute Basophils 0.08 (0.0-0.2) 10^3/uL Sodium 140 (136-145) mmol/L Potassium 3.8 (3.5-5.1) mmol/L Chloride 105 (98-107) mmol/L Carbon Dioxide 27.7 (21.0-32.0) mmol/L Anion Gap 7.3 (3-11) mmol/L BUN 12 (7-18) mg/dL Creatinine 1.0 (0.70-1.30) mg/dL Est GFR (CKD-EPI 2020) 100.03 (mL/min/1.73m2) Glucose 81 (74-106) mg/dL Calcium 9.4 (8.5-10.1) mg/dL Magnesium 2.1 mg/dL Total Bilirubin 0.4 (0.2-1.0) mg/dL AST 14 L (15-37) U/L ALT 31 (16-63) U/L Alkaline Phosphatase 91 (46-116) U/L Troponin I Pending 6 5 (<or=76) ng/L Total Protein 7.2 (6.4-8.2) g/dL Albumin 3.9 (3.4-5.0) g/dL Triglycerides 140 (<150) mg/dL Total Cholesterol 164 (<200) mg/dL LDL Cholesterol, Calc 90 (<100) mg/dL HDL Cholesterol 46 H (>or=40) mg/dL Lipase 37 (<78) U/L Intake and Output - 24 Hour Total 08/31/24 20:41 thru 08/31/24 21:09 Intake Total 10 Balance 10 Weight 86.727 kg Intake: IV 10 Falls Risk Assessment History of Falls No History 08/31/24 21:52 Fall Total Score 0 08/31/24 21:52 Level of Risk Standard/Low Risk 08/31/24 21:52 v v v v v v v v v Sending and/or Receiving Nurses: Please use comment section below to note any information pertinent to the patient hand-off not included above. Information / Comments: called for report at 2316, 34 year old male patient with CP. EKG NSR, Trops 5, 6. hypertensive. received aspirin, morphine, zofran and NS Bolus in the ER. patient to have an ECHO and stress test tomorrow due to heart score and his family cardiac hx. Not currently having any active chest pain.transition mgr to transport patient up to Med surg floor. Report received from: LYNDA Barboza
--- NOTE | 2024-08-31 23:28 | W.PM.HP.N ---
Date of service: 08/31/24 Time of Service: 22:28 Assessment and Plan Assessment and plan (1) Chest pain of uncertain etiology: Status: Acute Assessment and plan: Very strong family history of coronary disease putting him at moderate risk on the heart score. His initial troponin was 5, repeat was 6. He has a third troponin coming up at midnight. His EKG shows no acute ST to T changes, there is flattening and inversion in the T wave of lead III. No evidence of ST elevation IN. Plan is to admit him on telemetry and follow serial troponins and treat any chest discomfort. He would benefit from stress testing as soon as possible (2) Tobacco abuse: Status: Acute Assessment and plan: Ongoing tobacco abuse in a man with a a moderate heart score. Strongly encouraged smoking cessation and stress reduction. (3) Hyperlipidemia: Status: Acute Assessment and plan: History of hyperlipidemia. Lipid panel today is reassuring. Continue on statin therapy. (4) Family history of ischemic heart disease: Status: Acute Assessment and plan: Extremely strong family history of coronary disease. He may benefit from risk stratification with apolipoprotein testing. This could be done as an outpatient. History of Present Illness History of Present Illness Chief Complaint: Substernal crushing chest pain Narrative: 34-year-old male with a very strong family history of early coronary artery disease. He states that over the last 2 weeks to 2 months he has had increasing episodes of substernal chest pain. This evening he reports onset of 8 out of 10 crushing substernal chest pain at 1915 hrs. The pain radiated to his left arm and his left arm went numb. This pain lasted for about an hour. On presentation to the emergency room he still had 4 out of 10 chest pain. He received ibuprofen, aspirin, morphine and currently has 0 out of 10 chest pain. Family history includes his father who has had multiple stents, an uncle who has of coronary disease in his 40s, and another uncle who has significant coronary disease. His grandfather of heart related issues. Patient has seen cardiology because of his strong family history. He is on statin medication. Unfortunately he smokes 1 to 1-1/2 packs/day. Does not drink alcohol or use any illicit drugs. He has a stressful job and is going to online school as well as raising 12-year-old and a 16-year-old. 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 He smokes 1 to 1-1/2 packs/day. He describes numerous stressors in his life. He is very concerned about coronary disease that runs strong in his family. He has been having chest pain as described in HPI of increasing frequency over the last 2 months. No new cough or shortness of breath. No new GI or symptoms. No ongoing problems with muscle aches or cramps. He does not drink alcohol or use illicit drugs. PFSH All Active Problems (Updated 08/31/24 @ 23:32 by Phi Deluna MD) Chest pain of uncertain etiology (Acute) Tobacco abuse (Acute) Hyperlipidemia (Acute) Family history of ischemic heart disease (Acute) Medical History (Updated 08/31/24 @ 23:32 by Phi Deluna MD) Acute pain of right knee Perirectal abscess Pilonidal sinus without abscess Low back pain radiating to both legs Resolved with PT and work restrictions. MMI on 03/06/2022. Surgical History Status post incision and drainage (~04/04/23) Social History Smoking/Tobacco Use Status: Current every day Tobacco Type: cigarettes Smoking risk assessment performed?: Yes Drug use: Never Substance use type: does not use Housing: house Do you feel safe at home: Yes Do you feel safe in your relationship?: Yes Meds Allergies and Home Medications Allergies Allergy/AdvReac Type Severity Reaction Status Date / Time No Known Allergies Allergy Verified 08/31/24 20:47 Home Medications ?Medication ?Instructions ?Recorded ?Confirmed ?Type albuterol sulfate 90 mcg/actuation 2 puff inhalation QID PRN 04/01/23 08/31/24 History aerosol inhaler atorvastatin 10 mg tablet 10 mg PO DAILY 08/31/24 08/31/24 History tadalafil 5 mg tablet 8.5 mg PO DAILY 08/31/24 08/31/24 History Exam Narrative Exam Narrative: On exam he is affable and in no apparent distress. He is cooperative with exam. He was pain-free at the time of my exam. His lungs sounded clear on the right and left. His heart sounds were regular I did not appreciate a significant murmur. Abdomen was moderately obese but overall nontender to palpation. Lower extremity showed no evidence of edema and otherwise appeared well perfused. Neurologically showed no focal deficits. Results Imaging Chest x-ray: report reviewed Labs 08/31/24 20:55 08/31/24 20:55 Labs: Laboratory Results - last 24 hr 08/31/24 08/31/24 20:55 21:50 WBC 10.41 RBC 5.03 Hgb 15.5 Hct 45.7 MCV 91 MCH 30.8 MCHC 33.9 RDW 12.2 Plt Count 265 MPV 8.9 Immature Gran % 0.4 Neutrophils % 60.1 Lymphocytes % 25.7 Monocytes % 10.6 Eosinophils % 2.4 Basophils % 0.8 Nucleated RBC % 0.0 Absolute Neutrophils 6.26 Absolute Lymphocytes 2.68 Absolute Monocytes 1.10 H Absolute Eosinophils 0.25 Absolute Basophils 0.08 Sodium 140 Potassium 3.8 Chloride 105 Carbon Dioxide 27.7 Anion Gap 7.3 BUN 12 Creatinine 1.0 Est GFR (CKD-EPI 2020) 100.03 Glucose 81 Calcium 9.4 Magnesium 2.1 Total Bilirubin 0.4 AST 14 L ALT 31 Alkaline Phosphatase 91 Troponin I 5 6 Total Protein 7.2 Albumin 3.9 Triglycerides 140 Total Cholesterol 164 LDL Cholesterol, Calc 90 HDL Cholesterol 46 H Lipase 37 Last Vital Signs Temp 36.8 C 08/31/24 20:44 Pulse 64 08/31/24 23:21 Resp 15 08/31/24 23:21 BP 159/105 H 08/31/24 22:46 Pulse Ox 96 08/31/24 23:21 PAWSS Pt Consumed Any Amount of Alcohol Within the Last 30 days OR had positive ANDRES Upon Admission: No Time Spent Time spent with Patient: 55-74 minutes Time was spent: preparing to see the patient(eg.review tests), obtaining and/or reviewing separately otained hiistory, ordering medications,tests, procedures, referring, communicating with other health auto care center manager, indepentently interpreting results and counseling the patient
[2024-09-01] MEDS: Normal Saline Flush 10 ML SYR ×2 (00:21→09:12)
[2024-09-01] MEDS: Nicotine 2 MG GUM CH (00:21)
[2024-09-01 00:37] VITALS: BP 126/87; PULSE 86; RESP 16; TEMP 36.4; O2SAT 100
[2024-09-01 00:43] LABS: Troponin I 7 ng/L (<or=76)
[2024-09-01 04:53] VITALS: BP 115/80; PULSE 80; RESP 16; TEMP 36.5; O2SAT 97
[2024-09-01 07:34] VITALS: BP 115/80; PULSE 78; RESP 18; TEMP 36.8; O2SAT 96
[2024-09-01 07:51] LABS: Abs Immature Grans 0.05 10^3/uL (0.0-0.06); Absolute Basophil Count 0.07 10^3/uL (0.0-0.2); Absolute Eosinophil Count 0.26 10^3/uL (0.0-0.7); Absolute Lymphocyte Count 1.76 10^3/uL (1.2-3.4); Absolute Monocyte Count 0.75 10^3/uL (0.1-0.8); Absolute Neutrophil Count 4.39 10^3/uL (1.2-6.7); Eosinophils % 3.6 %; HCT 42.7 % (40.0-50.0); HGB 14.3 g/dL (13.5-17.5); Immature Grans % 0.7 %; Lymphocytes % 24.2 %; MCH 30.6 pg (27.0-33.0); MCHC 33.5 % (32.0-36.0); MCV 91 fL (80-95); Monocytes % 10.3 %; Neutrophils % 60.2 %; Platelet Count 240 10^3/uL (130-400); RBC 4.67 10^6/uL (4.36-5.78); RDW 12.3 % (11.8-14.1); RDW-SD 41.1 fL; WBC 7.28 10^3/uL (4.4-10.8)
[2024-09-01 07:59] LABS: Anion Gap 4.4 mmol/L (3-11); BUN 12 mg/dL (7-18); CO2 28.6 mmol/L (21.0-32.0); Calcium 9.1 mg/dL (8.5-10.1); Chloride 110 mmol/L (98-107); Estimated GFR 100.03 (mL/min/1.73m2); Glucose 99 mg/dL (74-106); Sodium 143 mmol/L (136-145)
[2024-09-01] MEDS: Nicotine 21 MG/24 HR PATCH TD (09:11)
[2024-09-01] MEDS: Enoxaparin 40 MG/0.4 ML SYR SC (09:12)
[2024-09-01 10:50] VITALS: BP 127/88; PULSE 72; RESP 18; TEMP 36.7; O2SAT 98
--- NOTE | 2024-09-01 11:00 | DSE_ITS ---
Date of service: 09/01/24 Time of Service: 11:07 DS: Diagnosis Discharge Diagnosis (1) Chest pain of uncertain etiology: Status: Acute (2) Tobacco abuse: Status: Acute (3) Hyperlipidemia: Status: Acute (4) Family history of ischemic heart disease: Status: Acute Discharge Plan Disposition Patient Disposition: Home Condition: Good Discharge Details Reason For Visit: Chest pain rule out [place] Admit Date/Time: 08/31/24 23:01 Admit Provider: Phi Deluna Attending Provider: Phi Deluna Primary Care Provider: DAVID WILEY Hospital Course Hospital Course: 34 yo M smoker with strong family history of early heart disease who presented with chest pain that had been intermittent for 2 months but increasing in the past 2 weeks. Pain was 8/10 and resolved after aspirin, ibuprofen, and morphine. His EKG did not show ischemic changes and troponins were negative and flat. Due to his risk factors he was observed overnight. Stress test was planned but was not available until the following day. He had no recurrence of chest pain or events on telemetry. He elected to go home and return for stress test as an outpatient. Smoking cessation was emphasized. He was contemplative, but declined Rx for varenicline and/or NRT. He states he will discuss with his PCP. His cholesterol was checked and LDL was 90 which was an improvement on his atorvastatin, which was continued. He should be scheduled with his PCP after the stress test. Home Meds and New Rx's Prescriptions: Continued albuterol sulfate 90 mcg/actuation HFA aerosol inhaler 2 puff INHALATION QID PRN Patient Comments: INHALE 2 PUFFS BY MOUTH EVERY 4 HOURS NEEDED atorvastatin 10 mg tablet 10 mg PO DAILY Patient Comments: TAKE 1 TABLET BY MOUTH EVERY DAY DIRECTED FOR HIGH CHOLESTEROL tadalafil 5 mg tablet 8.5 mg PO DAILY Discharge Instructions Instructions: Chest Pain (DC) Additional Instructions: work on quitting smoking. Consider trying Chantix with nicotene path and/or gum with your PCP Come back if you get more chest pain. Otherwise get that stress test as an outpatient. Stand Alone Forms: Nursing Discharge Form Referrals: DAVID WILEY, FEED MILL MANAGER [Primary Care Provider] - 09/17/24 10:10 am (Appt will be with Moody Mcduffie. ) Activity:: Activity as Tolerated Equipment/Supplies:: No Equipment Needed Diet:: As Tolerated Discharge Orders Discharge Orders: Discharge Order (Routine); Ordered 09/01/24 Ordered By: Josh Berg Other Ambulatory Orders: ETT Stress Test (Outpt) (ONCE) Timeframe: 20240911 Facility: [facility] - Location: DIAGNOSTIC IMAGING Ordered By: Josh Berg DS: Summary Time Spent with Patient providing and/or coordinating discharge services: Greater than 30 minutes Status at Discharge Functional status at discharge: independent ambulation Overall status at discharge: patient is back to baseline Mental Status: mental status grossly normal Speech and Movement: speech and movement normal Mood: congruent mood Affect: normal affect Quality:SDOH Health Related Social Needs: Health related social needs housing instability, house d, with risk of homelessness (Z59.811), food insecurity (Z59.41), problems with daily activities (Z73.9) Exam Narrative Exam Narrative: On exam he is alert and oriented and in no apparent distress. His lungs sounded clear bilaterally with normal effort. His heart sounds were regular I did not appreciate a significant murmur. Abdomen nontender to palpation. Lower extremity showed no evidence of edema and otherwise appeared well perfused. Psych Mental Status: mental status grossly normal Speech and Movement: speech and movement normal Mood: congruent mood Affect: normal affect DS: Data Vitals/I&O Vitals and I&O: Vital Signs Temperature 36.7 C 09/01/24 10:50 Temperature Source Tympanic 09/01/24 10:50 Pulse 72 09/01/24 10:50 Pulse 65 08/31/24 23:21 Respiratory Rate 18 09/01/24 10:50 Respiratory Effort Normal 09/01/24 00:37 Respiratory Depth Normal 09/01/24 00:37 Respiratory Pattern Normal 09/01/24 00:37 Blood Pressure 127/88 09/01/24 10:50 Blood Pressure Mean 122 08/31/24 22:46 Blood Pressure Position Supine 08/31/24 20:44 Pulse Oximetry 98 09/01/24 10:50 Oxygen Delivery Method Room Air 09/01/24 10:50 Oxygen Flow Rate 0 09/01/24 10:50 Pain Level 0 09/01/24 07:34 Intake & Output 08/31/24 08/31/24 09/01/24 11:59 23:59 11:59 Intake Total 730 / 730 Balance 730 / 730 Weight 86.727 kg 81.873 kg Intake: IV 510 / 510 Oral 220 / 220 Other: Urine Color Yellow Urine Appearance Clear Urine Odor None Comment voided in the toilet, unmeasurable void Stool Size Moderate Stool Characteristics Soft Formed Data Completed and Pending Labs on day of discharge: Labs from last 24 hours 09/01/24 09/01/24 08/31/24 07:35 00:18 21:50 WBC 7.28 RBC 4.67 Hgb 14.3 Hct 42.7 MCV 91 MCH 30.6 MCHC 33.5 RDW 12.3 Plt Count 240 MPV 9.0 Immature Gran % 0.7 Neutrophils % 60.2 Lymphocytes % 24.2 Monocytes % 10.3 Eosinophils % 3.6 Basophils % 1.0 Nucleated RBC % 0.0 Absolute Neutrophils 4.39 Absolute Lymphocytes 1.76 Absolute Monocytes 0.75 Absolute Eosinophils 0.26 Absolute Basophils 0.07 Sodium 143 Potassium 4.0 Chloride 110 H Carbon Dioxide 28.6 Anion Gap 4.4 BUN 12 Creatinine 1.0 Est GFR (CKD-EPI 2020) 100.03 Glucose 99 Calcium 9.1 Magnesium Total Bilirubin AST ALT Alkaline Phosphatase Troponin I 7 6 Total Protein Albumin Triglycerides Total Cholesterol LDL Cholesterol, Calc HDL Cholesterol Lipase 08/31/24 20:55 WBC 10.41 RBC 5.03 Hgb 15.5 Hct 45.7 MCV 91 MCH 30.8 MCHC 33.9 RDW 12.2 Plt Count 265 MPV 8.9 Immature Gran % 0.4 Neutrophils % 60.1 Lymphocytes % 25.7 Monocytes % 10.6 Eosinophils % 2.4 Basophils % 0.8 Nucleated RBC % 0.0 Absolute Neutrophils 6.26 Absolute Lymphocytes 2.68 Absolute Monocytes 1.10 H Absolute Eosinophils 0.25 Absolute Basophils 0.08 Sodium 140 Potassium 3.8 Chloride 105 Carbon Dioxide 27.7 Anion Gap 7.3 BUN 12 Creatinine 1.0 Est GFR (CKD-EPI 2020) 100.03 Glucose 81 Calcium 9.4 Magnesium 2.1 Total Bilirubin 0.4 AST 14 L ALT 31 Alkaline Phosphatase 91 Troponin I 5 Total Protein 7.2 Albumin 3.9 Triglycerides 140 Total Cholesterol 164 LDL Cholesterol, Calc 90 HDL Cholesterol 46 H Lipase 37 PFSH All Active Problems (Updated 08/31/24 @ 23:32 by Phi Deluna MD) Chest pain of uncertain etiology (Acute) Tobacco abuse (Acute) Hyperlipidemia (Acute) Family history of ischemic heart disease (Acute) Medical History (Updated 08/31/24 @ 23:32 by Phi Deluna MD) Pilonidal sinus without abscess Perirectal abscess Low back pain radiating to both legs Resolved with PT and work restrictions. MMI on 03/06/2022. Acute pain of right knee Surgical History Status post incision and drainage (~04/04/23) Social History Smoking/Tobacco Use Status: Current every day Tobacco Type: cigarettes Smoking risk assessment performed?: Yes Drug use: Never Substance use type: does not use Housing: other Do you feel safe at home: Yes Do you feel safe in your relationship?: Yes Time Spent with Patient Time Spent with Patient: <45 minutes Time was spent: preparing to see the patient(eg.review tests), obtaining and/or reviewing separately otained hiistory, ordering medications,tests, procedures, referring, communicating with other health transitional care manager, indepentently interpreting results, counseling the patient and care coordination
--- NOTE | 2024-09-01 14:31 | PDOC.CMPRO ---
Date of service: 09/01/24 Time of Service: 10:00 Care Management Progress Note Progress Note Text Progress Note Text: Vimal was admitted through the ED yesterday when he presented with chest pain. The pain has been intermittent for the last 2 months, but increased over the last 2 weeks. Yesterday he had pain radiating down his left arm. Vimal has a very strong family history of cardiac disease. EKG did not show any ischemic changes and his troponins were negative and flat. Vimal will have an outpatient stress test on 09/08 and will f/u with his PCP on 09/17. Vimal was discharged and had left [facility] before CM could meet with him this morning. Discharge Potential Discharge Needs: PCP F/U Appt and Other (cardiac stress testing) Anticipated Barriers to Discharge: None Identified Patient/Family Education Needs: Review discharge instructions, discuss Ask Me Three Transportation: Private vehicle Plan: Vimal was discharged early this morning with no new services. He will have an outpatient stress test and will f/u with his PCP. Vimal was transported home in a private vehicle. Social Determinants of Health Screening Social Determinants of Health last assessed: 09/01/24 Will the Patient Participate in the Screening?: Yes Do you worry about having a steady place to live?: yes What is your living situation today?: I do not have steady housing (unable to ask patient about this) Problems where you live: no known problems In the past 12 months, have you had to go without electric, gas, oil or water in your home?: no Have you or anyone in your house had to go without enough food to eat?: no Has lack of transportation kept you from medical appointments or from doing things needed for daily living?: no Has anyone in your life made you feel unsafe or unsupported?: no How hard is it for you to pay for the very basics like food, housing, medical care, and heating? Would you say it is:: Not hard at all Do you want help finding or keeping work or a job?: I do not need or want help If for any reason you need help with day-to-day activities such as bathing, preparing meals, shopping, managing finances, etc., do you get the help you need?: I need a lot more help How often do you feel lonely or isolated from those around you?: Never Do you speak a language other than [place]an at home?: No Does the patient want assistance with any of the above?: No Health Related Social Needs Health related social needs: housing instability, housed, with risk of homelessness (Z59.811), food insecurity (Z59.41) and problems with daily activities (Z73.9)
== END 2024-09-01 11:11 | disposition home or self-care (01) ==
LOC: ER 23:26 → MS 23:28
PROVIDERS: Admitting Provider Family Medicine; Emergency Provider Physician Assistant; PCP Nurse Practitioner Family; Responsible Provider Family Medicine; Visit Provider Family Medicine
DX: R07.89 Other chest pain (principal); E78.5 Hyperlipidemia, unspecified; Z82.49 Family history of ischemic heart disease and other diseases of the circulatory system; F17.210 Nicotine dependence, cigarettes, uncomplicated; Z59.811 Housing instability, housed, with risk of homelessness; Z59.41 Food insecurity; Z73.9 Problem related to life management difficulty, unspecified
CPT/HCPCS: 00123; 36415; 80048; 80053; 80061; 83690; 93005; 96361; 96372; 96374; 96375; 99285; J1650; 71046; 83735; 84484; 85025; 93010; 99223; 99239; G0378; J2270; J2405

== ENCOUNTER 2024-09-08 00:49 | Outpatient (CLI) | payer OTHER, SELFPAY ==
--- NOTE | 2024-09-08 | ETT_ITS ---
APPROVED REPORT Exam: Exercise Treadmill Patient Location: Out-Patient Room/Bed: Stress Nurse: Ricky Munoz RN Ordering Provider:KELLY ZIMMER, Contact Number: [phone] BMI: 29.04 Baseline Rhythm: Sinus Rhythm. Comment: Non-diagnostic ST-T abnormalities. Indications: Chest Pain; Family H/O Ischemic Heart Disease; Smoker. Medical History Medical History: HLD; Perirectal Abscess; Current Smoker (Tobacco Abuse). Cardiac Medications: Albuterol Sulfate; Atorvastatin; Tadalafil. Allergies: None. Cardiac Risk Factors: Family Hx; HLD; Current Smoker. Previous Cardiac Procedures: None. Pretest Chest Pain Characteristics: None. Exercise History: Physically active. Physical Disabilities: None. Lung Sounds: Diminished in bilateral posterior bases, but clear bilaterally throughout, anterior and posterior otherwise. Heart Sounds: S1 and S2 auscultated. Stress Test Details Test: Exercise stress testing was performed using a Carlos protocol. Rest Stress HR Resting HR Supine: 72 bpm Max Heart Rate (APMHR): 184 bpm Resting HR Standin bpm Target HR (85% APMHR): 156 bpm Max HR Achieved: 156 bpm % of APMHR: 85 Recovery HR: 88 bpm HR response to stress: Normal HR response to stress. BP Resting BP Supine: 118/82 mmHg Resting BP Standin/86 mmHg Max BP: 134/70 mmHg Recovery BP: 112/80 mmHg BP response to stress: Normal blood pressure response to stress. ECG Resting ECG: Sinus Rhythm, nonspecific ST-T abnormalities. Ectopy: Rare PVC. Stress ECG: Sinus Tachycardia, nonspecific ST-T abnormalities. ST Change: No significant ST segment changes noted. Arrhythmia: Occasional PVC's. Recovery ECG: Sinus Rhythm, nonspecific ST-T abnormalities. Recovery ST Change: No significant ST segment changes noted. Recovery Arrhythmia: Rare PVC. Clinical Reason for Termination: Target HR Achieved. Stress Symptoms: Minimal shortness of breath. Exercise duration: 09 min02 sec Highest Stage Reached: Stage 4: 4.2 mph at 16% grade. Exercise capacity: 10.21 METs Angina Score: None Padgett Treadmill Score: 8.2 Rate Pressure Product: [id number] Stress ECG Conclusion 1. Resting electrocardiogram was normal 2. Patient exercised on the Carlos protocol and completed a workload of 10 METS 3. Normal heart rate and blood pressure response to exercise. The patient achieved 85% predicted hea rt rate for age 4. There was no electrocardiographic evidence of myocardial ischemia 5. There were rare PVCs Padgett Treadmill Score is 8.2 which is Low risk. Stress Test Summary STAGE Time (mins) Speed (mph) Grade (%) HR BP SpO2 SYMPTOMS METS Supine 72 118/82 96 Standing 88 114/86 98 1 3 1.7 10 108 120/70 97 4.5 2 6 2.5 12 122 96 Pt. c/o minimal shortness of breath. 7 3 9 3.4 14 156 96 Pt. c/o minimal shortness of breath. 10 1 min recovery 156 130/68 96 Pt. states that his shortness of breath is starting to resolve . 3 min recovery 100 134/70 96 6 min recovery 88 112/80 96 Pt. is asymptomatic. Pt. was conversing pleasantly with nursing staff upon leaving the Stress Lab. Pt. left ambulatory in no apparent distress.
== END 2024-09-08 01:09 ==
LOC: DI 00:49
PROVIDERS: PCP Nurse Practitioner Family; Visit Provider Family Medicine
DX: R07.9 Chest pain, unspecified (principal); Z85.49 Personal history of malignant neoplasm of other male genital organs; Z72.0 Tobacco use
CPT/HCPCS: 93017

== ENCOUNTER 2025-01-14 23:41 | Emergency (ER) | payer OTHER, SELFPAY ==
[2025-01-14 23:43] VITALS: BP 155/114; PULSE 106; RESP 20; TEMP 36.7; O2SAT 96
--- NOTE | 2025-01-14 23:47 | W.ED.GENAD ---
Discharge Plan Disposition Patient Disposition: [facility] Condition: Good Discharge Details Clinical Impression: Encounter for medical assessment Primary Care Provider: DAVID WILEY ED Provider: Gena Bolaños Home Meds and New Rx's Prescriptions: Continued albuterol sulfate 90 mcg/actuation HFA aerosol inhaler 2 puff INHALATION QID PRN Patient Comments: INHALE 2 PUFFS BY MOUTH EVERY 4 HOURS NEEDED atorvastatin 10 mg tablet 10 mg PO DAILY Patient Comments: TAKE 1 TABLET BY MOUTH EVERY DAY DIRECTED FOR HIGH CHOLESTEROL tadalafil 5 mg tablet 8.5 mg PO DAILY Discharge Instructions Additional Instructions: Please seek medical attention if you develop any medical concerns. HPI General Mode of arrival: ambulatory. Date/Time Provider Initiated Documentation: 01/14/25 23:42. Limitations to Documentation: no limitations. Information obtained by: patient. HPI Narrative: 34yo M with hx hyperlipidemia, asthma, presents in company of [facility] for medical evaluation prior to being taken to [facility]. Patient reports drinking alcohol today, will not disclose how much. He denies any complaints and does not want further medical evaluation. Related Data Home Medications ?Medication ?Instructions ?Recorded ?Confirmed albuterol sulfate 90 mcg/actuation 2 puff inhalation QID PRN 04/01/23 01/14/25 aerosol inhaler atorvastatin 10 mg tablet 10 mg PO DAILY 08/31/24 01/14/25 tadalafil 5 mg tablet 8.5 mg PO DAILY 08/31/24 01/14/25 Allergies Allergy/AdvReac Type Severity Reaction Status Date / Time No Known Allergies Allergy Verified 01/14/25 23:46 General Stated Complaint: GenMedical JOJO: 5 Review of Systems All systems reviewed & are unremarkable except as noted in HPI and below Exam Narrative Exam Narrative: General: Alert, tense. Ambulates steadily independently. Clear speech. Head: Normocephalic, atraumatic Neck: Trachea midline, ?Neck supple. Cardiac: ?RRR, no murmurs appreciated Resp: No respiratory distress. CTAB. Abd: ?Non-distended Extremities: ?No deformities.? No peripheral edema. Neurologic: GCS 15. ? Moves all extremities freely against gravity Course Vital Signs Vital signs: Vital Signs Temperature 36.7 C 01/14/25 23:43 Pulse 106 H 01/14/25 23:43 Respiratory Rate 20 01/14/25 23:43 Blood Pressure 155/114 H 01/14/25 23:43 Pulse Oximetry 96 01/14/25 23:43 Temperature 36.7 C 01/14/25 23:43 Temperature Source Temporal Artery Scan 01/14/25 23:43 Pulse 106 H 01/14/25 23:43 Respiratory Rate 20 01/14/25 23:43 Blood Pressure 155/114 H 01/14/25 23:43 Blood Pressure Position Sitting 01/14/25 23:43 Pulse Oximetry 96 01/14/25 23:43 Oxygen Delivery Method Room Air 01/14/25 23:43 Oxygen Flow Rate 0 01/14/25 23:43 Pain Level 0 01/14/25 23:43 Medical Decision Making 34yo M with hx hyperlipidemia, asthma, presents in company of [facility] for medical evaluation prior to being taken to [facility]. Patient reports drinking alcohol today, will not disclose how much. He denies any complaints and does not want further medical evaluation. Slightly tachycardiac and hypertensive on arrival, suspect 2/t agitation. Tense and mildly agitated on exam, tapping foot repeatedly. Ambulates steadily, clear speech, not clinically intoxicated. He denies any history of alcohol withdrawal. No chest pain or shortness of breath. Medical screening exam completed and patient without medical complaints. Discharged. Quality:SDOH Health Related Social Needs: Health related social needs risk of homeless food insecurity daily activities PFSH All Active Problems (Updated 01/14/25 @ 23:52 by Gena Bolaños MD) Encounter for medical assessment (Acute) Chest pain of uncertain etiology (Acute) Tobacco abuse (Acute) Hyperlipidemia (Acute) Family history of ischemic heart disease (Acute) Medical History (Updated 01/14/25 @ 23:52 by Gena Bolaños MD) Acute pain of right knee Perirectal abscess Pilonidal sinus without abscess Low back pain radiating to both legs Resolved with PT and work restrictions. MMI on 03/06/2022. Surgical History Status post incision and drainage (~04/04/23) Social History Smoking/Tobacco Use Status: Current every day Tobacco Type: cigarettes Smoking risk assessment performed?: Yes Alcohol Intake: current Alcohol Intake frequency: holidays/special occasions only Drug use: Never Substance use type: does not use Housing: other Do you feel safe at home: Yes Do you feel safe in your relationship?: Yes PAWSS Have you Been Recently Intoxicated or Drunk Within the Last 30 days?: Yes Have you Ever Experienced Previous Episodes of Alcohol Withdrawal?: No Have you ever Experienced Withdrawal Seizures?: No Have you ever Experienced Delirium Tremens(DT)s?: No Have you ever undergone Alcohol Rehabilitation Treatment (i.e, inpt ot outpatient treatment programs)?: No Have you ever Experienced Blackouts?: No Have you ever Combined Alcohol with other Downers within the last 90 days?: No Have you ever Combined Alcohol with any other Substance of Abuse during the last 90 days?: No Positive Blood Alcohol level on Presentation? [PCS.BAL]: No Evidence of Increased Autonomic Activity (i.e. HR>120, tremor, sweating, agitation, nausea)?: No Result: 1
[2025-01-14 23:50] VITALS: BP 155/114; PULSE 106; RESP 20; TEMP 36.7; O2SAT 96
== END 2025-01-14 23:56 ==
PROVIDERS: Emergency Provider Student in an Organized Health Care Education/Training Program; PCP Nurse Practitioner Family
DX: Z76.89 Persons encountering health services in other specified circumstances (principal); Z59.41 Food insecurity; Z59.811 Housing instability, housed, with risk of homelessness
CPT/HCPCS: 99283; 99285